=== PATIENT | female | born 2000 | race Caucasian/White ===

== ENCOUNTER 2020-09-11 22:57 | Emergency (ER) | payer OTHER, SELFPAY ==
[2020-09-11 23:51] VITALS: BP 123/78; PULSE 95; RESP 18; TEMP 36.9; O2SAT 97; BMI 68.3
--- NOTE | 2020-09-12 01:33 | ECG_ITS ---
Test Reason : SYNCOPE Blood Pressure : / mmHG Vent. Rate : 082 BPM Atrial Rate : 082 BPM P-R Int : 128 ms QRS Dur : 082 ms QT Int : 358 ms P-R-T Axes : 007 008 010 degrees QTc Int : 418 ms Normal sinus rhythm Normal ECG No previous ECGs available Referred By: Karli Diego Electronically Signed By:Chris Garcia
[2020-09-12 01:56] VITALS: BP 127/67; BP 168/98; PULSE 105; PULSE 86
[2020-09-12 01:57] VITALS: BP 150/95; PULSE 111
[2020-09-12 01:58] VITALS: BP 171/91; PULSE 112; RESP 20; O2SAT 97
[2020-09-12 02:04] LABS: MANUAL DIFF FLAG NO
[2020-09-12 02:05] LABS: Basophils Absolute Auto 0.1 X10*3/uL (0.0-0.2); Basophils Percent Auto 0.5 % (0-2); Eosinophils Absolute Auto 0.2 X10*3/uL (0.0-0.4); Eosinophils Percent Auto 1.2 % (0-4); Hematocrit 40.7 % (37-47); Hemoglobin 13.7 g/dl (12.0-16.0); Imm Gran Abs Auto 0.07 X10*3/uL (0.00-0.03); Imm Gran Pct Auto 0.4 % (0.0-0.4); Lymphocytes Absolute Auto 2.7 X10*3/uL (1.2-4.9); Lymphocytes Percent Auto 16.8 % (20-40); Mean Corpuscular HGB Conc 33.7 g/dl (31.0-35.0); Mean Corpuscular Hemoglobin 29.8 pg (27.0-33.0); Mean Corpuscular Volume 88.5 fL (80-98); Mean Platelet Volume 9.6 fL (9.4-12.3); Monocytes Absolute Auto 1.1 X10*3/uL (0.1-1.2); Monocytes Percent Auto 6.7 % (2-11); Neutrophils Absolute Auto 12.1 X10*3/uL (2.0-8.3); Neutrophils Percent Auto 74.4 % (45-73); Platelet Count 342 X10*3/uL (160-400); Red Cell Distribution Width 13.2 % (11.0-16.0); White Blood Count 16.2 X10*3/uL (4.8-10.8)
[2020-09-12 02:18] LABS: Amphetamine Screen Urine Not Detected (Not Detect); Barbiturates, Urine Not Detected (Not Detect); Benzodiazepines Screen Urine Not Detected (Not Detect); Cannabinoid Screen Urine Not Detected (Not Detect); Cocaine Screen Urine Not Detected (Not Detect); Opiate Screen Urine Not Detected (Not Detect); Phencyclidine Screen Urine Not Detected (Not Detect)
[2020-09-12 02:23] LABS: Glucose Urine UA NEG (NEG); Leukocyte Esterase Urine NEG (NEG); Nitrite Urine NEG (NEG); Specific Gravity - Urine >= 1.030 (1.005-1.025); Urine Blood 2+ (NEG); Urine Ketones NEG (NEG); Urine Protein TRACE MG/DL (NEG-TRACE)
[2020-09-12 02:23] LABS: UPreg QC Valid YES; Urine Pregnancy NEGATIVE (NEGATIVE)
[2020-09-12 02:24] LABS: Appearance Urine HAZY; Color Urine YELLOW
[2020-09-12 02:41] LABS: Alanine Aminotransferase 29 U/L (0-31); Alkaline Phosphatase 70 U/L (39-117); Aspartate Amino Transferase 20 U/L (5-31); Bilirubin Total 0.4 mg/dL (0.0-1.0); Blood Urea Nitrogen 14 mg/dL (9-16); Calcium 9.4 mg/dL (8.4-10.2); Carbon Dioxide 22 mmol/L (22-29); Creatinine Clr Calc Pharmacy 194.2; Estimated Glomerular Filt Rate > 60; Glucose Random 93 mg/dL (60-115); Total Protein 6.9 g/dL (6.5-8.0)
--- NOTE | 2020-09-12 03:01 | ED.SYNCOPE ---
HPI - Syncope General Chief Complaint: Syncope Stated Complaint: fainted 2 hours ago Time Seen by Provider: 09/12/20 01:33 Source: patient Mode of arrival: ambulatory History of Present Illness HPI narrative: This is a 19-year-old female without significant medical history who presents after reporting a syncopal episode in front of her family this evening. Patient states that she had been standing and talking to them for approximately 30 minutes and denies that it was an emotional conversation but states that she noted her vision started to narrow and she began to feel sweaty and cold, and then reports that the next thing she knew she was on the ground. She denies any recent illnesses with fevers, chills, denies any sore throat/ear pain, cough, shortness of breath, chest pain/palpitations. In addition, she denies any abdominal discomfort, nausea, vomiting, diarrhea and denies any urinary pain/burning/frequency. She states that she has been eating and drinking normally without any difficulty. Related Data Allergies Allergy/AdvReac Type Severity Reaction Status Date / Time No Known Allergies Allergy Unverified 09/11/20 23:57 Review of Systems Review of Systems: Pertinent positives and negatives as stated in HPI 10 point review of systems is otherwise negative. PMFSH Past Medical History Source: nursing notes reviewed Social History Social History Alcohol intake: never Patient Tobacco Use Status: Never used Tobacco Use of substances other than those prescribed or required for medical reasons: No Advance Directives: No Advance Directives Information Provided: No Patient : No Physical Exam Vital Signs: Vital Signs: Last Vital Signs Temp 98.4 F 09/11/20 23:51 Pulse 112 H 09/12/20 01:58 Resp 20 09/12/20 01:58 BP 171/91 H 09/12/20 01:58 Pulse Ox 97 09/12/20 01:58 Body Mass Index 68.3 VITAL SIGNS: Reviewed. GENERAL: Well developed, well nourished, in no acute distress. HEAD: Normocephalic/atraumatic EYES: PERRLA, EOMI EARS: Ext canals without abnormality, TMs non-bulging and non-erythematous NOSE: Nares patent bilateral OROPHARYNX: no oral lesions noted, posterior pharynx clear and non-erythematous without noted tonsillar enlargement/erythema/exudates NECK: Supple, no adenopathy LUNGS: Normal breath sounds. No adventitious sounds or accessory muscle use. SpO2<97> CARDIOVASCULAR: Regular rate and rhythm without noted murmurs ABDOMEN: Obese, Soft, non-tender, non-distended with bowel sounds. MUSCULOSKELETAL: No tenderness, deformities, or effusions noted on gross inspection. EXTREMITIES: No cyanosis, clubbing or edema. SKIN: Inspection of the skin reveals no rashes NEUROLOGIC: Alert and oriented x 4. Course Course Course Narrative: This is a 19-year-old female with history and clinical presentation consistent with vasovagal syncope. Review of all investigations negative for any acute findings except a leukocytosis that with no supporting history or clinical findings is being attributed to reactive secondary to patient's vasovagal episode. There is no evidence of infection otherwise, anemia, or arrhythmia. MDM - Syncope Lab Data Result diagrams: 09/12/20 01:54 09/12/20 01:54 Labs: Lab Results 09/12/20 09/12/20 09/12/20 Range/Units 01:48 01:48 01:49 WBC (4.8-10.8) X10*3/uL RBC (4.20-5.50) X10*6/uL Hgb (12.0-16.0) g/dl Hct (37-47) % MCV (80-98) fL MCH (27.0-33.0) pg MCHC (31.0-35.0) g/dl RDW (11.0-16.0) % Plt Count (160-400) X10*3/uL MPV (9.4-12.3) fL Immature Gran % (Auto) (0.0-0.4) % Neut % (Auto) (45-73) % Lymph % (Auto) (20-40) % Harding % (Auto) (2-11) % Eos % (Auto) (0-4) % Baso % (Auto) (0-2) % Lymph # (Auto) (1.2-4.9) X10*3/uL Harding # (Auto) (0.1-1.2) X10*3/uL Eos # (Auto) (0.0-0.4) X10*3/uL Baso # (Auto) (0.0-0.2) X10*3/uL Abs Immat Gran (auto) (0.00-0.03) X10*3/uL Absolute Neuts (auto) (2.0-8.3) X10*3/uL Absolute Nucleated RBC (0.0-0.012) X10*3/uL Nucleated RBC % (auto) (0.0-0.2) /100WBC Carbon Dioxide (22-29) mmol/L BUN (9-16) mg/dL Creatinine (0.5-1.4) mg/dL Estim Creat Clear Calc Estimated GFR Random Glucose (60-115) mg/dL Calcium (8.4-10.2) mg/dL Total Bilirubin (0.0-1.0) mg/dL AST (5-31) U/L ALT (0-31) U/L Alkaline Phosphatase (39-117) U/L Total Protein (6.5-8.0) g/dL Albumin (3.5-5.0) g/dL Specimen Comment Urine Color YELLOW Urine Appearance HAZY Urine pH 6.0 (5.0-8.0) Ur Specific Bone Gap >= 1.030 H (1.005-1.025) Urine Protein TRACE (NEG-TRACE) MG/DL Urine Glucose (UA) NEG (NEG) MG/DL Urine Ketones NEG (NEG) MG/DL Urine Blood 2+ H (NEG) Urine Nitrite NEG (NEG) Ur Leukocyte Esterase NEG (NEG) Urine Test NEGATIVE (NEGATIVE) Urine Opiates Screen Not Detected (Not Detect) Ur Barbiturates Screen Not Detected (Not Detect) Ur Phencyclidine Scrn Not Detected (Not Detect) Ur Amphetamines Screen Not Detected (Not Detect) U Benzodiazepines Scrn Not Detected (Not Detect) Urine Cocaine Screen Not Detected (Not Detect) U Marijuana (THC) Screen Not Detected (Not Detect) 09/12/20 09/12/20 09/12/20 Range/Units 01:54 01:54 01:54 WBC 16.2 H (4.8-10.8) X10*3/uL RBC 4.60 (4.20-5.50) X10*6/uL Hgb 13.7 (12.0-16.0) g/dl Hct 40.7 (37-47) % MCV 88.5 (80-98) fL MCH 29.8 (27.0-33.0) pg MCHC 33.7 (31.0-35.0) g/dl RDW 13.2 (11.0-16.0) % Plt Count 342 (160-400) X10*3/uL MPV 9.6 (9.4-12.3) fL Immature Gran % (Auto) 0.4 (0.0-0.4) % Neut % (Auto) 74.4 H (45-73) % Lymph % (Auto) 16.8 L (20-40) % Harding % (Auto) 6.7 (2-11) % Eos % (Auto) 1.2 (0-4) % Baso % (Auto) 0.5 (0-2) % Lymph # (Auto) 2.7 (1.2-4.9) X10*3/uL Harding # (Auto) 1.1 (0.1-1.2) X10*3/uL Eos # (Auto) 0.2 (0.0-0.4) X10*3/uL Baso # (Auto) 0.1 (0.0-0.2) X10*3/uL Abs Immat Gran (auto) 0.07 H (0.00-0.03) X10*3/uL Absolute Neuts (auto) 12.1 H (2.0-8.3) X10*3/uL Absolute Nucleated RBC 0.000 (0.0-0.012) X10*3/uL Nucleated RBC % (auto) 0.0 (0.0-0.2) /100WBC Carbon Dioxide 22 (22-29) mmol/L BUN 14 (9-16) mg/dL Creatinine 0.72 (0.5-1.4) mg/dL Estim Creat Clear Calc 194.2 Estimated GFR > 60 Random Glucose 93 (60-115) mg/dL Calcium 9.4 (8.4-10.2) mg/dL Total Bilirubin 0.4 (0.0-1.0) mg/dL AST 20 (5-31) U/L ALT 29 (0-31) U/L Alkaline Phosphatase 70 (39-117) U/L Total Protein 6.9 (6.5-8.0) g/dL Albumin 4.0 (3.5-5.0) g/dL Specimen Comment DELAY Urine Color Urine Appearance Urine pH (5.0-8.0) Ur Specific Bone Gap (1.005-1.025) Urine Protein (NEG-TRACE) MG/DL Urine Glucose (UA) (NEG) MG/DL Urine Ketones (NEG) MG/DL Urine Blood (NEG) Urine Nitrite (NEG) Ur Leukocyte Esterase (NEG) Urine Test (NEGATIVE) Urine Opiates Screen (Not Detect) Ur Barbiturates Screen (Not Detect) Ur Phencyclidine Scrn (Not Detect) Ur Amphetamines Screen (Not Detect) U Benzodiazepines Scrn (Not Detect) Urine Cocaine Screen (Not Detect) U Marijuana (THC) Screen (Not Detect) ECG Data Attestation: I personally reviewed and interpreted this ECG as follows: Prior ECG tracings: not available for review Interpretation: Normal sinus rhythm, HR -82, no evidence of acute ischemia, FL/QRS/QTC are within normal limits. Discharge Plan Discharge Clinical Impression: Vasovagal syncope Patient Disposition: Home, Self-Care Instructions: Syncope (ED) Additional Instructions: 1. Please increase your fluid hydration especially with water. 2. Please follow-up with your primary care provider in the next 2-3 days for re-evaluation. Return to the ER for any worsening of symptoms. Referrals: Araceli Lowe MD [Primary Care Provider] - 2 days
[2020-09-12 03:08] LABS: Delay - Chemistry DELAY
[2020-09-12 03:12] LABS: Bacteria Urine 1+ /LPF; Mucus Urine 1+ /LPF; RBC Urine 0-2 /HPF (0); Squamous Epithelial Cell Urine 1+ /LPF
[2020-09-12 04:11] LABS: Anion Gap 14 (12-20); Chloride 108 mmol/L (96-108); Potassium 4.2 mmol/L (3.3-5.1); Sodium 141 mmol/L (135-145)
== END 2020-09-12 03:42 | disposition home or self-care (01) ==
PROVIDERS: Emergency Provider Student in an Organized Health Care Education/Training Program; PCP Pediatrics
DX: R55 Syncope and collapse (principal)
CPT/HCPCS: 36415; 80053; 80307; 81001; 81025; 85025; 93005; 99284; 99285

== ENCOUNTER 2023-04-21 13:03 | Emergency (ER) | payer OTHER, SELFPAY ==
[2023-04-21 14:48] VITALS: BP 142/71; PULSE 70; RESP 18; TEMP 37; O2SAT 97; BMI 67.9
--- NOTE | 2023-04-21 14:48 | ED.GENADULT ---
HPI - General Adult General Chief complaint: Upper Respiratory Symptoms Stated complaint: covid symptoms Time Seen by Provider: 04/21/23 15:29 Source: patient Mode of arrival: ambulatory Limitations: no limitations History of Present Illness HPI narrative: 22-year-old female with a history of obesity presents the ER with cough and congestion for 3 days. No difficulty breathing, chest pain, fevers, chills, vomiting, diarrhea, abdominal pain, headache, skin rash, neck pain or neck stiffness. Family member is here sick with similar symptoms. Patient did a COVID test at home which was faintly positive. She wanted confirmation prompting her ER visit. Related Data Allergies Allergy/AdvReac Type Severity Reaction Status Date / Time No Known Allergies Allergy Verified 04/21/23 14:48 Review of Systems Review of Systems: Yes all other systems are reviewed and are negative Constitutional: Constitutional: Reports no additional constitutional complaints, Denies body ache(s), Denies chills, Denies fever(s), Denies headache(s) and Denies weakness Eyes: Eyes: Reports no additional eye complaints and Denies change in vision ENT: Reports system reviewed and no additional complaints, except as documented, Denies dizziness, Denies headache(s), Reports nasal congestion, Denies nasal discharge and Denies neck pain Cardiovascular: Cardiovascular: Reports no additional cardiovascular complaints, Denies chest pain, Denies leg edema and Denies dyspnea Respiratory: Respiratory: Reports no additional respiratory complaints, Reports cough and Denies dyspnea Gastrointestinal: Gastrointestinal: Reports no additional gastrointestinal complaints, Denies abdominal pain, Denies diarrhea, Denies nausea and Denies vomiting Genitourinary: Genitourinary: Reports no additional female genitourinary complaints and Denies urinary incontinence Musculoskeletal: Musculoskeletal: Reports no additional musculoskeletal complaints, Denies back pain, Denies arthralgias, Denies joint swelling, Denies neck pain, Denies numbness and Denies tingling Integumentary/Breasts: Skin/Breast: Reports system reviewed and no additional complaints, except as docu and Denies rash Neurologic: Reports system reviewed and no additional complaints, except as documented, Denies Abnormal speech present, Denies dizziness, Denies headache(s), Denies numbness, Denies tingling and Denies weakness PMF Past Medical History Attestation statement: The following information was validated with the patient. Source: old records reviewed and nursing notes reviewed Onset Date is defined in the Problem List Problems that require an onset date and time if occurred within 24 hrs of arrival to the ED Aortic Dissection and Rupture; Neurologic impairment; Cardiopulmonary Arrest; Endotracheal Intubation; Insertion or Replacement of Mechanical Circulatory Assist Device Social History Social History Alcohol intake: never Patient Tobacco Use Status: Never used Tobacco Advance Directives: No Advance Directives Information Provided: No Physical Exam ED Vital Signs: Vital Signs - 24 hr 04/21/23 14:48 Temperature 98.6 F Pulse Rate 70 Respiratory Rate 18 Blood Pressure 142/71 H Pulse Oximetry 97 Oxygen Delivery Method Room Air BMI result Body Mass Index 67.9 Const General: cooperative, healthy appearing, comfortable and no acute distress Orientation/consciousness: patient oriented x3 Limitations: no limitations HENMT Head: Yes normal to inspection Ears: hearing grossly normal bilaterally and TM's normal bilaterally General nose exam: Normal external nose present Face and sinus: Yes normal facial exam Mouth: Normal oral and palatal mucosa present Throat: Yes posterior oropharynx normal, Yes tonsils normal and Yes uvula midline Eyes General: appearance normal, both eyes and all related structures Pupils: Equal, round and reactive pupils present Neck Neck: Yes normal visual inspection, Yes full ROM, Yes no lymphadenopathy and Yes no meningeal signs Chest Chest palpation & inspection: normal inspection of the chest Resp Effort & Inspection: normal respiratory effort Auscultation: clear to auscultation bilaterally Cardio Rate: regular rate Rhythm: regular rhythm Peripheral pulses: Peripheral pulses 2+ throughout GI Inspection: Yes normal to inspection Palpation (GI): Soft to palpation and nontender Auscultation: normal bowel sounds Back/Spine/Pelvis Thoracic/Lumbar Spine: thoracic and lumbar spine normal to inspection Skin General skin exam: no rashes or lesions noted Neuro General: patient oriented x3, no meningeal signs, no focal motor deficits and normal sensation to monofilament Cranial nerves: Yes Equal, round and reactive pupils present Cognition (Neuro): normal cognition Speech: No Abnormal speech present Gait exam (Neuro): Normal gait present Motor exam (neuro): 5/5 motor strength present throughout Extrem General: Yes normal to inspection, Yes no pedal edema and Yes no calf tenderness Course Course Course Narrative: This is an RME: Additional HPI, ROS, PE not included below will be deferred to primary provider. This is a 22-year-old female presenting to the emergency department with complaints of cold like symptoms. Has not taken covid test. Woke up today with no smell or taste. +Cough, sneezing, stuffy nose. No fevers. +sick contacts. No CP Plan: COVID, Flu, strep Medical Decision Making Medical Decision Making [facility] Narrative: 22-year-old female with a history of obesity presents the ER with cough and congestion for 3 days. No difficulty breathing, chest pain, fevers, chills, vomiting, diarrhea, abdominal pain, headache, skin rash, neck pain or neck stiffness. Family member is here sick with similar symptoms. Patient did a COVID test at home which was faintly positive. She wanted confirmation prompting her ER visit. VSS. LS CTA. Exam is benign Will send viral testing Differential Diagnosis Differential Diagnoses: The differential diagnosis associated with the presentation includes viral syndrome. influenza, Admission/Observation Consideration of admission/observation: Escalation of care including admission/observation considered COVID screen is positive. No hypoxia or tachypnea suggest need for supplemental oxygen and admission. Lab Data [facility] Lab Attestation statement: I reviewed the patient's lab results. COVID + Labs: Lab Results 04/21/23 Range/Units 15:33 COVID-19 (ANN-MARIE) Positive A (Negative) COVID-19 Clin Com See Note Influenza Type A (MYA) Negative (Negative) Influenza Type B (MYA) Negative (Negative) Influenza A & B Note See Note S. pyogenes GrpA MYA Negative (Negative) Tests considered The following testing was considered but not selected: No hypoxia or tachypnea to suggest need for x-ray Prescription Management I considered prescription management with: Antiviral reviewed antiviral medication with patient potential side effects. At this time shared decision-making to hold Discharge Plan Discharge Clinical Impression: COVID-19 Patient Disposition: Home, Self-Care Instructions: COVID-19 (Coronavirus Disease 2019) (ED) Additional Instructions: alternate Motrin or Tylenol for pain or fever Increase fluids, rest Return for any shortness of breath or chest pain. Referrals: Physician,Unknown J [Primary Care Provider] - 1 week
[2023-04-21 15:59] LABS: COVID-19 Test Positive (Negative); IDNOW Serial# 08D9AD1C; IDNOW Serial# 152EDE1D; Strep A Nucleic Acid Negative (Negative)
[2023-04-21 16:01] LABS: IDNOW Serial# 9DB6401D; Influenza A Negative (Negative); Influenza B2 Negative (Negative)
== END 2023-04-21 16:30 | disposition home or self-care (01) ==
PROVIDERS: Physician Assistant Medical; Emergency Provider Emergency Medicine
DX: U07.1 COVID-19 (principal)
CPT/HCPCS: 87502; 87635; 87651; 99283

== ENCOUNTER 2024-11-12 15:43 | Emergency (ER) | payer MEDICAID, SELFPAY ==
--- NOTE | ~2024-11-12 | XR_ITS ---
EXAMINATION: XR CHEST CLINICAL INFORMATION: short of breath COMPARISON: None available. TECHNIQUE: 2 views of the chest were obtained. FINDINGS: The cardiac, hilar, and mediastinal contours are normal. The lungs are clear bilaterally. There is no pneumothorax or pleural effusion. There is no focal osseous or soft tissue abnormality. XR/XR chest 2V IMPRESSION: No active pulmonary disease. Electronically signed by: Sandeep Chavez MD 11/12/2024 04:11 PM EDT
[2024-11-12 15:54] VITALS: BP 167/76; PULSE 71; RESP 18; TEMP 36.6; O2SAT 97; BMI 66.8
--- NOTE | 2024-11-12 15:55 | ED.SOB ---
HPI - SOB/Dyspnea General Chief Complaint: Upper Respiratory Symptoms Stated Complaint: short of breath, dizzy, pain in arm Time Seen by Provider: 11/12/24 22:09 Source: patient Mode of arrival: ambulatory Limitations: no limitations History of Present Illness ED Provider: Dr. Mendy Montalvo HPI Narrative: Patient comes to the emergency room complaining of shortness of breath. Patient denies any cough, chest pain . Patient states that this time she is not short of breath. Patient states that a few days ago she fell a bit of dizziness, explained as not feeling well, denies room spinning, denies fainting episodes, denies near syncopal episodes either. Or room spinning. At this time, patient states that she feels better. Denies any sick contacts. Also, patient earlier today complaining of arm pain but now it self-resolved. Patient denies any sharp chest pains or rib pains, denies any lower extremity pain or swelling Related Data Allergies Allergy/AdvReac Type Severity Reaction Status Date / Time No Known Allergies Allergy Verified 11/12/24 15:55 Review of Systems Review of Systems: Constitutional : No Weight loss, No Fever, No Chills, No Night Sweats, No Fatigue, No Malaise ENT/Mouth : No Hearing loss, No Ear Pain, No Nasal Congestion, No Sinus Pain, No Hoarseness, No sore throat, No Rhinorrhea, No Swallowing Difficulty Eyes: No Eye Pain, No Swelling, No Redness, No Foreign Body, No Discharge, No Vision Changes Cardiovascular : No Chest Pain, No SOB, No Dyspnea on Exertion, No Orthopnea, No Edema, No Palpitations Respiratory : No Cough, No Sputum, No Wheezing, No Smoke Exposure, complaining of self-resolved Dyspnea Gastrointestinal : No Nausea, No Vomiting, No Diarrhea, No Constipation, No abdominal Pain, No Hematochezia, No Melena Genitourinary : no irregular bleeding, No Dysuria, No Urinary Frequency, No Hematuria, No Urinary Incontinence, No Urgency, No Flank Pain, No Urinary Flow Changes, No Hesitancy Musculoskeletal : No joint pain, No Myalgias, No Joint Swelling Skin : No Skin Lesions, No rash Neuro : No Weakness, No Numbness, No Paresthesias, No Loss of Consciousness, No Dizziness, No Headache Psych : No Anxiety/Panic, No Depression, No SI/HI/AH/VH, No Social Issues, Heme/Lymph: No Bruising, No Bleeding,No Lymphadenopathy Endocrine : No Polyuria, No Polydipsia, No Temperature Intolerance [facility] Social History Social History Alcohol intake: never Patient Tobacco Use Status: Never used Tobacco Smoked in Last 30 Days: No Use of substances other than those prescribed or required for medical reasons: No Advance Directives: No Advance Directives Information Provided: No Physical Exam Exam: Exam: Appearance: Alert. Oriented X3. No acute distress. Patient is morbidly obese Eyes: Pupils equal, round and reactive to light. ENT: Pharynx normal. Neck: Normal inspection. Neck supple. No lymph nodes noted. No crepitus CVS: Normal heart rate and rhythm. Pulses normal. Normal S1 and S2 Respiratory: No respiratory distress. Breath sounds normal. No Wheezing. No rales Abdomen: Soft and nontender. No rigidity. No distention. Skin: Skin warm and dry. Normal skin color. Normal skin turgor. Extremities: No lower extremity edema. No Lacerations. No Rash Neuro: Oriented X 3. No motor deficit. No sensory deficit. Moving all extremities. No slurred speech. CN 2 through 12 grossly intact Psych: calm, cooperative, normal affect Vital Signs: Vital Signs: Last Vital Signs Temp 99.4 F 11/12/24 22:00 Pulse 59 11/12/24 22:00 Resp 18 11/12/24 22:00 BP 149/72 H 11/12/24 22:00 Pulse Ox 96 11/12/24 22:00 O2 Del Method Room Air 11/12/24 22:00 BMI result Body Mass Index 66.8 Course Course Course Narrative: This is a Rapid Medical Examination (RME) performed by Sandra Butts PA-C in triage. Full HPI, ROS, assessment and treatment plan per primary provider in the Main ED. Hx: 23 yo F here for eval of shortness of breath x days, worsening. PE/vitals: well appearing, lungs clear, no respiratory distress Plan: labs, cxr, viral swabs Medical Decision Making Medical Decision Making [facility] Narrative: My interpretation of labs: Patient's white blood cell count is normal, same a stress of hematology, chemistry does not show any acute abnormalities, normal LFTs, negative serology, chest x-ray negative. Physical exam reassuring, no wheezing, no rales or crackles, oxygen saturation 98%. Discussed with the patient that eventually she may need to follow-up with the primary care physician. Patient at risk of hypoventilation syndrome due to body habitus Pulse criteria score for pulmonary embolism is 0 Differential Diagnosis Differential Diagnoses: The differential diagnosis associated with the presentation includes (Hypoventilation syndrome, deconditioning, viral URI) Lab Data MDM Lab Attestation statement: I reviewed the patient's lab results. 11/12/24 16:19 11/12/24 16:19 Labs: Lab Results 11/12/24 Range/Units 16:19 WBC 7.0 (4.8-10.8) X10*3/uL RBC 4.55 (4.20-5.50) X10*6/uL Hgb 13.1 (12.0-16.0) g/dl Hct 38.8 (37.0-47.0) % MCV 85.3 (80.0-98.0) fL MCH 28.8 (27.0-33.0) pg MCHC 33.8 (31.0-35.0) g/dl RDW 13.2 (11.0-16.0) % Plt Count 266 (160-400) X10*3/uL MPV 9.9 (9.4-12.3) fL Immature Gran % (Auto) 0.4 (0.0-0.4) % Neut % (Auto) 79.3 H (45-73) % Lymph % (Auto) 14.5 L (20-40) % [place] % (Auto) 4.2 (2-11) % Eos % (Auto) 0.9 (0-4) % Baso % (Auto) 0.7 (0-2) % Lymph # (Auto) 1.0 L (1.2-4.9) X10*3/uL [place] # (Auto) 0.3 (0.1-1.2) X10*3/uL Eos # (Auto) 0.1 (0.0-0.4) X10*3/uL Baso # (Auto) 0.1 (0.0-0.2) X10*3/uL Abs Immat Gran (auto) 0.03 (0.00-0.03) X10*3/uL Absolute Neuts (auto) 5.5 (2.0-8.3) x10*3/uL Absolute Nucleated RBC 0.000 (0.0-0.012) X10*3/uL Nucleated RBC % (auto) 0.0 (0.0-0.2) /100WBC Sodium 144 (135-145) mmol/L Potassium 3.7 (3.3-5.1) mmol/L Chloride 110 H (96-108) mmol/L Carbon Dioxide 27 (22-29) mmol/L Anion Gap 11 L (12-20) BUN 10 (9-16) mg/dL Creatinine 0.80 (0.5-1.4) mg/dL Estim Creat Clear Calc 172.4 Estimated GFR > 60 Random Glucose 89 (60-115) mg/dL Calcium 9.2 (8.4-10.2) mg/dL Magnesium 1.9 (1.6-2.6) mg/dL Total Bilirubin 0.5 (0.0-1.0) mg/dL AST 32 H (5-31) U/L ALT 28 (0-31) U/L Alkaline Phosphatase 73 (39-117) U/L Total Protein 7.4 (6.5-8.0) g/dL Albumin 4.2 (3.5-5.0) g/dL Influenza Type A (PCR) NEGATIVE (Negative) Influenza Type B (PCR) NEGATIVE (Negative) RSV RNA Qual (PCR) NEGATIVE (Negative) SARS-CoV-2 RNA (RT-PCR) NEGATIVE (Negative) Independent Interpretation I performed an independent interpretation of an: Plain X-Ray Radiology Impression Discussion of test interpretation with radiology: I have reviewed the radiologist's reading. Radiologist Impression: The cardiac, hilar, and mediastinal contours are normal. The lungs are clear bilaterally. There is no pneumothorax or pleural effusion. There is no focal osseous or soft tissue abnormality. XR/XR chest 2V IMPRESSION: No active pulmonary disease. Discharge Plan Discharge Clinical Impression: Dyspnea Patient Disposition: Home, Self-Care Instructions: Dyspnea (ED) Print Language: Lao
[2024-11-12 16:28] LABS: MANUAL DIFF FLAG NO
[2024-11-12 16:30] LABS: Hematocrit 38.8 % (37.0-47.0); Hemoglobin 13.1 g/dl (12.0-16.0); Imm Gran Abs Auto 0.03 X10*3/uL (0.00-0.03); Imm Gran Pct Auto 0.4 % (0.0-0.4); Lymphocytes Absolute Auto 1.0 X10*3/uL (1.2-4.9); Mean Corpuscular HGB Conc 33.8 g/dl (31.0-35.0); Mean Corpuscular Hemoglobin 28.8 pg (27.0-33.0); Mean Corpuscular Volume 85.3 fL (80.0-98.0); NRBC Abs Auto 0.000 X10*3/uL (0.0-0.012); NRBC Pct Auto 0.0 /100WBC (0.0-0.2); Platelet Count 266 X10*3/uL (160-400); Red Blood Count 4.55 X10*6/uL (4.20-5.50); White Blood Count 7.0 X10*3/uL (4.8-10.8)
[2024-11-12 16:42] LABS: Alanine Aminotransferase 28 U/L (0-31); Albumin Level 4.2 g/dL (3.5-5.0); Alkaline Phosphatase 73 U/L (39-117); Anion Gap 11 (12-20); Aspartate Amino Transferase 32 U/L (5-31); Blood Urea Nitrogen 10 mg/dL (9-16); Calcium 9.2 mg/dL (8.4-10.2); Carbon Dioxide 27 mmol/L (22-29); Chloride 110 mmol/L (96-108); Creatinine Clr Calc Pharmacy 172.4; Estimated Glomerular Filt Rate > 60; Magnesium 1.9 mg/dL (1.6-2.6); Potassium 3.7 mmol/L (3.3-5.1); Sodium 144 mmol/L (135-145); Total Protein 7.4 g/dL (6.5-8.0)
[2024-11-12 17:05] LABS: Resp Syncy Virus RNA Qual PCR NEGATIVE (Negative); SARS COV2 PCR INHOUSE NEGATIVE (Negative)
[2024-11-12 22:00] VITALS: BP 149/72; PULSE 59; PULSE 66; RESP 18; TEMP 37.4; O2SAT 96
--- NOTE | 2024-11-12 22:10 | PC.NURSE ---
this RN assumed care at this time, pt A+Ox3, lungs clear upon auscultation SPO2 97% on RA , pt changed over into hospital gown and placed on campus monitor. Lab work obtained in triage
[2024-11-12 22:40] VITALS: BP 149/72; PULSE 59; RESP 18; TEMP 37.4; O2SAT 96
== END 2024-11-12 22:43 | disposition home or self-care (01) ==
PROVIDERS: Physician Assistant Medical; Emergency Provider Emergency Medicine
DX: R06.02 Shortness of breath (principal); R42 Dizziness and giddiness; Z03.818 Encounter for observation for suspected exposure to other biological agents ruled out
CPT/HCPCS: 36415; 71046; 80053; 83735; 85025; 87637; 99283; 99285

== ENCOUNTER → 2024-11-12 15:55 | Outpatient (BNV) | payer OTHER, SELFPAY | PROVIDERS: Visit Provider Radiology Diagnostic Radiology | DX: R06.02 Shortness of breath (principal) | CPT/HCPCS: 71046 ==

== ENCOUNTER 2024-12-25 12:25 | Emergency (ER) | payer MEDICAID, SELFPAY ==
--- NOTE | ~2024-12-25 | CT_ITS ---
CLINICAL HISTORY: epigastric pain CT abdomen and pelvis with contrast Comparison: None provided Findings: No consolidation or effusion. The liver is hypodense. Remaining abdominal organs are unremarkable. The gallbladder is not visualized. There is no biliary dilatation. No colitis or bowel obstruction. No obvious abnormality of the stomach. Pelvic contents unremarkable. Normal appendix. No acute fracture. IMPRESSION: 1. No acute abdominal disease. 2. Fatty infiltration of the liver. This document has been electronically signed by: Meme Mott MD on 12/25/2024 19:27:16
--- NOTE | ~2024-12-25 | CT_ITS ---
CLINICAL HISTORY: elevated dimer, SOB CT angiography chest with contrast. 3D Postprocessing. Comparison: None provided Findings: The heart size is normal. RV/LV ratio is normal. Unremarkable thoracic aorta and great vessels. No aneurysm. No acute pulmonary embolus. The visualized thyroid and mediastinum are unremarkable. The lungs are clear. Liver parenchyma is hypodense. The bones are intact. IMPRESSION: 1. No evidence of pulmonary artery embolism. 2. Hypodense liver parenchyma suggesting fatty infiltration. This document has been electronically signed by: Meme Mott MD on 12/25/2024 19:17:16
--- NOTE | 2024-12-25 12:28 | ED.ABDPAIN ---
HPI - Abdominal Pain General Chief Complaint: Abdominal Pain Stated Complaint: abd pain Time Seen by Provider: 12/25/24 14:36 Source: patient and family (Mother at bedside) Mode of arrival: ambulatory Limitations: no limitations History of Present Illness ED Provider: LEROY Vang HPI narrative: 24-year-old female without significant medical history presents to the ED for 4 days of worsening epigastric pain. Patient states she woke up 4 days ago out of her sleep due to pain. Patient reports the pain is a burning and stabbing sensation in the epigastric region that radiates to the chest that is not associated with nausea or vomiting and is worse after eating. Patient states her bowel movements have been soft during this time moving her bowels 2-3 times per day. Patient reports waking up with decreased appetite and worsening epigastric pain this morning prompting her to seek care in the ED. Mother states she gave the patient omeprazole this morning which did decrease severity of the abdominal pain. Additionally, she reports intermittent SOB that can occur during activity and at rest but does not have SOB at this exact time. She reports she was seen in the department 7 weeks ago for SOB and was told it was due to viral illness. She does not have a PCP to follow up with at this time. Related Data Allergies Allergy/AdvReac Type Severity Reaction Status Date / Time No Known Allergies Allergy Verified 12/25/24 12:30 Review of Systems Review of Systems CONST: Negative for fever, body aches and chills. HENT: Negative for neck pain/stiffness, headache, congestion, sore throat, swelling. EYES: Negative for discharge/pain or vision changes. RESP: Negative for cough/hemoptysis and shortness of breath. CV: Negative chest pain, difficulty breathing, palpitations. ABD: Negative nausea, vomiting. POS epigastric pain radiating into chest : Negative increase frequency, dysuria, blood in urine or stool. MUSC: Negative for muscle aches, edema. SKIN: Negative rash, lesions/sores. NEURO: Negative headache, dizziness, weakness. [facility] Past Medical History Attestation statement: The following information was validated with the patient. Source: old records reviewed and nursing notes reviewed Social History Social History Alcohol intake: never Patient Tobacco Use Status: Never used Tobacco Smoked in Last 30 Days: No Use of substances other than those prescribed or required for medical reasons: No Advance Directives: No Advance Directives Information Provided: Yes Patient : No Physical Exam ED Vital Signs: Vital Signs - 24 hr 12/25/24 12:29 12/25/24 16:10 12/25/24 18:32 Temperature 98.3 F 98.1 F Pulse Rate 72 80 76 Respiratory Rate 18 18 16 Blood Pressure 176/82 H 141/82 H 138/77 Pulse Oximetry 97 95 98 Oxygen Delivery Method Room Air Room Air Room Air BMI result Body Mass Index 65.6 GENERAL APPEARANCE: ?AxOx4, generally well-appearing, no acute distress. HEENT: ?NC, AT. MMM. EOMI, clear conjunctiva, oropharynx clear. NECK: ?Supple without lymphadenopathy.? No stiffness or restricted ROM. HEART:? Normal rate and regular rhythm, normal S1/S2, no m/r/g LUNGS:? CTAB, moving air well. No crackles or wheezes are heard. ABDOMEN: ?Soft, non distended, no rigidity, no guarding, TTP of epigastric region, no overlying skin changes BACK: No CVAT, no obvious deformity. EXTREMITIES: ?Without cyanosis, clubbing or edema. NEUROLOGICAL: ?Grossly nonfocal. Alert and oriented, moving all 4 extremities. Skin: ?Warm and dry without any rash. Course Course Course Narrative: This is an RME: Additional HPI, ROS, PE not included below will be deferred to primary provider. RME assessment and note performed by: Nell Cristobal PA-C This is a [id number]-erv-female who presents to the ER with a complaint of epigastric pain x 4 days. Pain has worsened since. Sharp pain, worsens with laying down. No fevers. +nausea, vomiting. LMP 1 month ago - denies risk of . Abd is soft with TTP in the epigastric area, mild TTP overlying the RUQ pain Plan: Labs Reevaluation(s) Reevaluation #1: Helga Moore PA-C have accepted care of the patient at signed out pending imaging and final disposition CT abdomen and pelvis: IMPRESSION: 1. No acute abdominal disease. 2. Fatty infiltration of the liver. CTA chest:IMPRESSION: 1. No evidence of pulmonary artery embolism. 2. Hypodense liver parenchyma suggesting fatty infiltration. Medical Decision Making Medical Decision Making [facility] Narrative: 24-year-old female without significant medical history presents to the ED for 4 days of progressively worsening burning/stabbing epigastric pain that is worse after eating. Intermittent SOB over the last month that occurs while at rest and during activity. Was seen in the department approx 7 weeks ago for SOB and diagnosed with a viral illness. Plan: labs, EKG Patient being medicated with 15ml Maalox and 15ml viscous lidocaine for epigastric pain. Course EKG reveals normal sinus rhythm without ST-elevation/depression, T-wave abnormality, the arrhythmia, lengthened QT, initial troponin undetectable at <2.7, patient without chest pain. Labs without leukocytosis/leukopenia, H&H stable, no electrolyte abnormality, lipase WNL, direct bilirubin WNL, beta HCG negative. Dimer was elevated at 252. Will obtain CTA chest and CT abdomen for further evaluation. Patient was signed out to my colleague LEROY Moore who will resume care of the patient. Patient is aware of this change and is in agreement with the plan Differential Diagnosis Differential Diagnoses: The differential diagnosis associated with the presentation includes PE Pancreatitis Acute abdomen GERD Admission/Observation Consideration of admission/observation: Escalation of care including admission/observation considered Lab Data [facility] Lab Attestation statement: I reviewed the patient's lab results. 12/25/24 13:00 12/25/24 13:00 Labs: Lab Results 12/25/24 12/25/24 Range/Units 13:00 16:06 WBC 8.7 (4.8-10.8) X10*3/uL RBC 4.47 (4.20-5.50) X10*6/uL Hgb 13.2 (12.0-16.0) g/dl Hct 39.2 (37.0-47.0) % MCV 87.7 (80.0-98.0) fL MCH 29.5 (27.0-33.0) pg MCHC 33.7 (31.0-35.0) g/dl RDW 13.5 (11.0-16.0) % Plt Count 264 (160-400) X10*3/uL MPV 9.6 (9.4-12.3) fL Immature Gran % (Auto) 0.5 H (0.0-0.4) % Neut % (Auto) 75.5 H (45-73) % Lymph % (Auto) 18.9 L (20-40) % [place] % (Auto) 3.6 (2-11) % Eos % (Auto) 0.9 (0-4) % Baso % (Auto) 0.6 (0-2) % Lymph # (Auto) 1.7 (1.2-4.9) X10*3/uL Real # (Auto) 0.3 (0.1-1.2) X10*3/uL Eos # (Auto) 0.1 (0.0-0.4) X10*3/uL Baso # (Auto) 0.1 (0.0-0.2) X10*3/uL Abs Immat Gran (auto) 0.04 H (0.00-0.03) X10*3/uL Absolute Neuts (auto) 6.6 (2.0-8.3) x10*3/uL Absolute Nucleated RBC 0.000 (0.0-0.012) X10*3/uL Nucleated RBC % (auto) 0.0 (0.0-0.2) /100WBC D-Dimer High Sensitivty 252 NG/ML Sodium 142 (135-145) mmol/L Potassium 4.0 (3.3-5.1) mmol/L Chloride 110 H (96-108) mmol/L Carbon Dioxide 29 (22-29) mmol/L Anion Gap 7 L (12-20) BUN 10 (9-16) mg/dL Creatinine 0.67 (0.5-1.4) mg/dL Estim Creat Clear Calc 208.8 Estimated GFR > 60 Random Glucose 118 H (60-115) mg/dL Calcium 8.9 (8.4-10.2) mg/dL Magnesium 1.9 (1.6-2.6) mg/dL Total Bilirubin 0.4 (0.0-1.0) mg/dL Direct Bilirubin 0.2 (0.0-0.5) mg/dL AST 28 (5-31) U/L ALT 30 (0-31) U/L Alkaline Phosphatase 77 (39-117) U/L Troponin I High Sens < 2.7 (<3.5-17.0) ng/L Total Protein 7.2 (6.5-8.0) g/dL Albumin 4.1 (3.5-5.0) g/dL Lipase 20 (8-78) U/L Beta HCG, Quant < 2 mIU/mL Independent Interpretation I performed an independent interpretation of an: EKG Interpretation: I independently interpreted the EKG which reveals normal sinus rhythm without ST-elevation/depression, T-wave abnormality, prolonged QT Vent. Rate : 63 BPM Atrial Rate : 63 BPM P-R Int : 118 ms QRS Dur : 88 ms QT Int : 396 ms P-R-T Axes : -10 8 4 degrees QTcB Int : 405 ms Normal sinus rhythm Normal ECG When compared with ECG of 12-Sep-2020 00:52, No significant change was found Radiology Impression Discussion of test interpretation with radiology: I have reviewed the radiologist's reading. Radiologist Impression: CTA chest PE protocol CT abdomen and pelvis Independent Historian Clinical information obtained from an independent historian. History obtained from or confirmed by: Parent (Mother at bedside corroborating history) External Record Review External record reviewed: Inpatient record, Office record and Outpatient record Chronic Conditions Patient?s care impacted by: Other (Obesity) Medications Administered Discontinued Medications Generic Name Dose Route Start Last Admin Trade Name Freq PRN Reason Stop Dose Admin Al Hydroxide/Mg Hydroxide 15 ml 12/25/24 15:43 12/25/24 16:08 Magnesium Hydrox/Alum Hydrox 30 Ml Oral.Susp PO 12/25/24 15:44 15 ml ONCE ONE Administration Iohexol 100 ml 12/25/24 17:48 12/25/24 17:49 Iohexol 350 Mg/Ml 100 Ml Infus..Btl IV 12/25/24 17:49 100 ml ONCE ONE Administration Lidocaine HCl 15 ml 12/25/24 15:43 12/25/24 16:08 Lidocaine Hcl Viscous 2 % 15 Ml Solution MUCOUS MEM 12/25/24 15:44 15 ml ONCE ONE Administration Discharge Plan Discharge Clinical Impression: Abdominal pain, Shortness of breath Patient Disposition: Home, Self-Care Instructions: Abdominal Pain (ED), Shortness of Breath (ED) Additional Instructions: All of your screening labs were completely normal including a cardiac enzyme. CT scan of your chest, abdomen and pelvis, were also unremarkable, you have no acute findings. Follow up with your primary care provider. Print Language: Icelandic
[2024-12-25 12:29] VITALS: BP 176/82; PULSE 72; RESP 18; TEMP 36.8; O2SAT 97; BMI 65.6
[2024-12-25 13:04] LABS: MANUAL DIFF FLAG NO
[2024-12-25 13:11] LABS: Hematocrit 39.2 % (37.0-47.0); Hemoglobin 13.2 g/dl (12.0-16.0); Imm Gran Abs Auto 0.04 X10*3/uL (0.00-0.03); Imm Gran Pct Auto 0.5 % (0.0-0.4); Lymphocytes Absolute Auto 1.7 X10*3/uL (1.2-4.9); Mean Corpuscular HGB Conc 33.7 g/dl (31.0-35.0); Mean Corpuscular Hemoglobin 29.5 pg (27.0-33.0); Mean Corpuscular Volume 87.7 fL (80.0-98.0); NRBC Abs Auto 0.000 X10*3/uL (0.0-0.012); NRBC Pct Auto 0.0 /100WBC (0.0-0.2); Platelet Count 264 X10*3/uL (160-400); Red Blood Count 4.47 X10*6/uL (4.20-5.50); White Blood Count 8.7 X10*3/uL (4.8-10.8)
[2024-12-25 13:26] LABS: Alanine Aminotransferase 30 U/L (0-31); Albumin Level 4.1 g/dL (3.5-5.0); Alkaline Phosphatase 77 U/L (39-117); Anion Gap 7 (12-20); Aspartate Amino Transferase 28 U/L (5-31); Blood Urea Nitrogen 10 mg/dL (9-16); Calcium 8.9 mg/dL (8.4-10.2); Carbon Dioxide 29 mmol/L (22-29); Chloride 110 mmol/L (96-108); Creatinine Clr Calc Pharmacy 208.8; Estimated Glomerular Filt Rate > 60; Lipase 20 U/L (8-78); Magnesium 1.9 mg/dL (1.6-2.6); Potassium 4.0 mmol/L (3.3-5.1); Sodium 142 mmol/L (135-145); Total Protein 7.2 g/dL (6.5-8.0)
--- NOTE | 2024-12-25 15:30 | ECG_ITS ---
Test Reason : EPIGASTRIC PAIN Blood Pressure : */* mmHG Vent. Rate : 63 BPM Atrial Rate : 63 BPM P-R Int : 118 ms QRS Dur : 88 ms QT Int : 396 ms P-R-T Axes : -10 8 4 degrees QTcB Int : 405 ms Normal sinus rhythm Normal ECG When compared with ECG of 12-Sep-2020 00:52, No significant change was found Referred By: Jessy Vang Electronically Signed By: MADELEINE CORCORAN
[2024-12-25] MEDS: Magnesium Hydrox/Alum Hydrox 30 ML ORAL.SUSP 15 ML PO (16:08)
[2024-12-25] MEDS: Lidocaine HCl Viscous 2 % 15 ML SOLUTION MUCOUS MEM (16:08)
[2024-12-25 16:10] VITALS: BP 141/82; PULSE 80; RESP 18; O2SAT 95
[2024-12-25 16:21] LABS: D Dimer High Sensitivity 252 NG/ML
--- OUTSIDE RECORDS SUMMARY | 2024-12-25 16:24 | XMS_ITS | Encounter Summary ---
Author Organization [facility] Address [address] [place] [address] Phone Care Team Providers Care Financial Assistant Name Role Phone Araceli Lowe MD Primary Care Provider [phone] Encounter Details Date Type Department Care Team (Late st Contact Info) Description 01/15/2014 Documentation [facility] Family Medicine [address] [place] [address] Family Medicine, Physician [address] [place], [place] [id number] Social History Tobacco Use Types Packs/Day Years Used Date Smoking Tobacco: Never Assessed Comments Unknown Sex and Gender Information Value Date Recorded Sex Assigned at Female 02/03/2019 1:57 PM EDT Legal Sex Female 4:56 PM EDT Gender Identity non-binary 04/30/2020 11:26 AM EST Sexual Orientation Straight 04/30/2020 12 :03 PM EST documented as of this encounter Plan of Treatment Not on file documented as of this encounter Visit Diagnoses Not on filedocumented in this encounter Care Teams Financial Assistant Relationship Specialty Start Date End Date Araceli Lowe MD [address] [place] [id number] PCP - General Pediatrics 08/20/18 09/26/22 documented as of this encounter
--- OUTSIDE RECORDS SUMMARY | 2024-12-25 16:24 | XMS_ITS | Encounter Summary ---
Author Organization [facility] Address [address] [place] [address] Phone Care Team Providers Care Sawyer Cork Slabs Name Role Phone Araceli Lowe MD Primary Care Provider Encounter Details Date Type Department Care Team (Late st Contact Info) Description 01/09/2014 Documentation [facility] [place] Medicine [address] [place] [address] Family Medicine, Physician [address] [place], [place] [address] Social History Tobacco Use Types Packs/Day Years [...] on filedocumented in this encounter Care Teams Sawyer Cork Slabs Relationship Specialty Start Date End Date Araceli Lowe MD [address] [place] [id number] PCP - General Pediatrics 08/20/18 09/26/22 documented as of this encounter
--- OUTSIDE RECORDS SUMMARY | 2024-12-25 16:24 | XMS_ITS | Encounter Summary ---
Author Organization [facility] Address [address] [place] [address] Phone Care Team Providers Care Director Of Real Estate Name Role Phone Araceli Lowe MD Primary Care Provider [phone] Encounter Details Date Type Department Care Team (Late st Contact Info) Description 10/16/[address] [facility] Family Medicine [address] [place] [address] Family Medicine, Physician [address] [place], [place] [id number] Social History Tobacco Use Types Packs/Day Years [...] on filedocumented in this encounter Care Teams Director Of Real Estate Relationship Specialty Start Date End Date Araceli Lowe MD [address] [place] [phone] PCP - General Pediatrics 08/20/18 09/26/22 documented as of this encounter
--- OUTSIDE RECORDS SUMMARY | 2024-12-25 16:24 | XMS_ITS | Encounter Summary ---
Author Organization [facility] Address [address] [place] [address] Phone Care Team Providers Care Undercover Operator Name Role Phone Araceli Lowe MD Primary Care Provider [phone] Encounter Details Date Type Department Care Team (Late st Contact Info) Description 03/20/2012 Documentation [facility] [place] [address] [place] [address] Family Medicine, Physician [address] [place], [place] [address] Social History Tobacco Use Types Packs/Day Years [...] on filedocumented in this encounter Care Teams Undercover Operator Relationship Specialty Start Date End Date Araceli Lowe MD [address] [place] [address] PCP - General Pediatrics 08/20/18 09/26/22 documented as of this encounter
--- OUTSIDE RECORDS SUMMARY | 2024-12-25 16:24 | XMS_ITS | Encounter Summary ---
Author Organization [facility] Address [address] [place] [address] Phone Care Team Providers Care Color Strainer Name Role Phone Araceli Lowe MD Primary Care Provider [phone] Encounter Details Date Type Department Care Team (Late st Contact Info) Description 01/20/2010 Documentation [facility] [place] [address] [place] [address] Family Medicine, Physician [address] [place], [place] [address] Social History Tobacco Use Types Packs/Day Years [...] on filedocumented in this encounter Care Teams Color Strainer Relationship Specialty Start Date End Date Araceli Lowe MD [address] [place] [phone] PCP - General Pediatrics 08/20/18 09/26/22 documented as of this encounter
--- OUTSIDE RECORDS SUMMARY | 2024-12-25 16:24 | XMS_ITS | Encounter Summary ---
Author Organization [facility] Address [address] [place] [address] Phone Care Team Providers Care Manager Social Responsibility Name Role Phone Araceli Lowe MD Primary Care Provider [phone] Encounter Details Date Type Department Care Team (Late st Contact Info) Description 03/11/2014 Documentation [facility] Family Medicine [address] [place] [address] Family Medicine, Physician [address] [place], [place] [id number] Social History Tobacco Use Types Packs/Day Years [...] on filedocumented in this encounter Care Teams Manager Social Responsibility Relationship Specialty Start Date End Date Araceli Lowe MD [address] [place] [address] PCP - General Pediatrics 08/20/18 09/26/22 documented as of this encounter
--- OUTSIDE RECORDS SUMMARY | 2024-12-25 16:24 | XMS_ITS | Encounter Summary ---
Author Organization [facility] Address [address] [place] [address] Phone Care Team Providers Care Concrete Finisher Name Role Phone Araceli Lowe MD Primary Care Provider [phone] Encounter Details Date Type Department Care Team (Late st Contact Info) Description 03/16/2014 [place]ation [facility] [place] [address] [place] [address] Family Medicine, Physician [address] [place], [place] 381541 Social History Tobacco Use Types Packs/Day Years [...] on filedocumented in this encounter Care Teams Concrete Finisher Relationship Specialty Start Date End Date Araceli Lowe MD [address] [place] [address] PCP - General Pediatrics 08/20/18 09/26/22 documented as of this encounter
--- OUTSIDE RECORDS SUMMARY | 2024-12-25 16:24 | XMS_ITS | Encounter Summary ---
Author Organization [facility] Address [address] [place] [address] Phone Care Team Providers Care Caser Shoe Parts Name Role Phone Araceli Lowe MD Primary Care Provider [phone] Encounter Details Date Type Department Care Team (Late st Contact Info) Description 11/23/2016 Conversion Encounter [facility] [place] [address] [place] [address] Social History Tobacco Use Types Packs/Day Years Used Date Smoking Tobacco: Never Comments:Never smoker Comments Unknown Sex and Gender Information Value [...] on filedocumented in this encounter Care Teams Caser Shoe Parts Relationship Specialty Start Date End Date Araceli Lowe MD [address] [place] [address] PCP - General Pediatrics 08/20/18 09/26/22 documented as of this encounter
--- OUTSIDE RECORDS SUMMARY | 2024-12-25 16:24 | XMS_ITS | Encounter Summary ---
Author Organization [facility] Address [address] [place] [address] Phone Care Team Providers Care Fuel Efficient Aircraft Designer Name Role Phone Araceli Lowe MD Primary Care Provider [phone] Encounter Details Date Type Department Care Team (Late st Contact Info) Description 01/13/2014 Documentation [facility] [place] Family Medicine [address] [place] [address] Family Medicine, Physician [address] [place], [place] 316271 Social History Tobacco Use Types Packs/Day Years [...] on filedocumented in this encounter Care Teams Fuel Efficient Aircraft Designer Relationship Specialty Start Date End Date Araceli Lowe MD [address] [place] [address] PCP - General Pediatrics 08/20/18 09/26/22 documented as of this encounter
--- OUTSIDE RECORDS SUMMARY | 2024-12-25 16:24 | XMS_ITS | Encounter Summary ---
Author Organization [facility] Address [address] [place] [address] Phone Care Team Providers Care Tractor Trailer Truck Driver Name Role Phone Araceli Lowe MD Primary Care Provider [phone] Encounter Details Date Type Department Care Team (Late st Contact Info) Description 06/26/2013 [place] [facility] [place] [address] [place] [address] Family Medicine, Physician [address] [place], [place] 102771 Social History Tobacco Use Types Packs/Day Years [...] on filedocumented in this encounter Care Teams Tractor Trailer Truck Driver Relationship Specialty Start Date End Date Araceli Lowe MD [address] [place] [address] PCP - General Pediatrics 08/20/18 09/26/22 documented as of this encounter
--- OUTSIDE RECORDS SUMMARY | 2024-12-25 16:24 | XMS_ITS | Encounter Summary ---
Author Organization [facility] Address [address] [place] [address] Phone Care Team Providers Care Dairy Technician Name Role Phone Araceli Lowe MD Primary Care Provider [phone] Encounter Details Date Type Department Care Team (Late st Contact Info) Description 01/16/2014 Documentation [facility] [place] [address] [place] [address] Family Medicine, Physician [address] [place], [place] 926951 Social History Tobacco Use Types Packs/Day Years [...] on filedocumented in this encounter Care Teams Dairy Technician Relationship Specialty Start Date End Date Araceli Lowe MD [address] [place] [address] PCP - General Pediatrics 08/20/18 09/26/22 documented as of this encounter
--- OUTSIDE RECORDS SUMMARY | 2024-12-25 16:24 | XMS_ITS | Encounter Summary ---
Author Organization [facility] Address [address] [place] [address] Phone Care Team Providers Care Sales Support Engineer Name Role Phone Araceli Lowe MD Primary Care Provider [phone] Encounter Details Date Type Department Care Team (Late st Contact Info) Description 09/30/2010 Documentation [facility] [place] [address] [place] [address] Family Medicine, Physician [address] [place], [place] 025741 Social History Tobacco Use Types Packs/Day Years [...] on filedocumented in this encounter Care Teams Sales Support Engineer Relationship Specialty Start Date End Date Araceli Lowe MD [address] [place] [address] PCP - General Pediatrics 08/20/18 09/26/22 documented as of this encounter
--- OUTSIDE RECORDS SUMMARY | 2024-12-25 16:24 | XMS_ITS | Encounter Summary ---
Author Organization [facility] Address [address] [place] [address] Phone Care Team Providers Care Wildlife Policy Professional Name Role Phone Araceli Lowe MD Primary Care Provider [phone] Encounter Details Date Type Department Care Team (Late st Contact Info) Description 03/18/2014 [place] [facility] [place] [address] [place] [address] Family Medicine, Physician [address] [place], [place] 562511 Social History Tobacco Use Types Packs/Day Years [...] on filedocumented in this encounter Care Teams Wildlife Policy Professional Relationship Specialty Start Date End Date Araceli Lowe MD [address] [place] [address] PCP - General Pediatrics 08/20/18 09/26/22 documented as of this encounter
--- OUTSIDE RECORDS SUMMARY | 2024-12-25 16:24 | XMS_ITS | Encounter Summary ---
Author Organization [facility] Address [address] [place] [address] Phone Care Team Providers Care Commercial Account Manager Name Role Phone Araceli Lowe MD Primary Care Provider [phone] Encounter Details Date Type Department Care Team (Late st Contact Info) Description 05/18/2010 Documentation [facility] [place] [address] [place] [address] Family Medicine, Physician [address] [place], [place] 516591 Social History Tobacco Use Types Packs/Day Years [...] on filedocumented in this encounter Care Teams Commercial Account Manager Relationship Specialty Start Date End Date Araceli Lowe MD [address] [place] [address] PCP - General Pediatrics 08/20/18 09/26/22 documented as of this encounter
--- OUTSIDE RECORDS SUMMARY | 2024-12-25 16:24 | XMS_ITS | Encounter Summary ---
Author Organization [facility] Address [address] [place] [address] Phone Care Team Providers Care Marbleizing Machine Tender Name Role Phone Araceli Lowe MD Primary Care Provider Encounter Details Date Type Department Care Team (Late st Contact Info) Description 02/03/2015 Documentation [facility] [place] Family Medicine [address] [place] [address] Family Medicine, Physician [address] [place], [place] 269481 Social History Tobacco Use Types Packs/Day Years [...] on filedocumented in this encounter Care Teams Marbleizing Machine Tender Relationship Specialty Start Date End Date Araceli Lowe MD [address] [place] [address] PCP - General Pediatrics 08/20/18 09/26/22 documented as of this encounter
--- OUTSIDE RECORDS SUMMARY | 2024-12-25 16:24 | XMS_ITS | Clinical Summary ---
Author Organization [facility] Address [address] [place] [address] Phone Care Team Providers Care Coat Ironer Hand Name Role Phone Unavailable Primary Care Provider Unavailabl e Allergies No known active allergies Medications amphetamine-dext roamphetamine XR (ADDERALL XR) 10 MG 24 hr capsule Take 20 mg by mouth. 7 Active metFORMIN 500 MG tablet Take 500 mg by mouth 2 (two) times a day with meals. Active levothyroxine 125 MCG tablet Take 125 mcg by mouth daily. Active vitamin E 400 units capsule Take 400 Units by mouth daily. Active Calcium Carb-Cholecalcif elyssa (CALCIUM-VITAMIN D) 500-200 MG-UNIT per tablet Take 1 tablet by mouth. Active amphetamine-dext roamphetamine 30 MG tablet Take 30 mg by mouth every afternoon. Active albuterol HFA (ProAir HFA) 108 (90 Base) MCG/ACT inhalerIndicatio ns:Mild intermittent asthma, unspecified whether complicated Inhale 2 puffs every 4 (four) hours as needed for wheezing or shortness of breath (cough). 1 Units 0 Active Additional Information Patient not taking.Reported on 04/30/2020 tretinoin 0.025 % creamIndications :Acne vulgaris Apply topically nightly. Leave on overnight. 45 g 3 1 Active Active Problems Problem Noted Date Diagnosed Date Myopia 08/01/2021 Overview (08/01/2021): With astigmatism. Glasses. F/u ophtho (Dr. [facility]) annually. Need for case management follow-up 04/30/2020 Overview (04/30/2020): Needs routine teen urine screen Vitamin D deficiency 02/06/2019 Overview (05/01/2020): 01/25: level = 13, instructed to start 1000IU/day, plan to re-check in 3 months, but not checked again until 04/29, when level was 13. Vitamin D 2000IU/day ordered 04/29. Acne vulgaris 02/03/2019 Overview (02/03/2019): Benzoyl peroxide and tretinoin 0.025% cream qhs Assessment & Plan (02/03/2019 1:36 PM EDT): Will start benzoyl peroxide and tretinoin 0.025% cream qhs. Dysmenorrhea 02/03/2019 Overview (02/03/2019): Doesn't want to take anything and still able to function normally. Assessment & Plan (02/03/2019 1:49 PM EDT): Discussed NSAIDs and heating pads. Morbid obesity due to excess calories 11/21/2017 Overview (04/25/2019): Has NAFLD (followed by Dr. Liao) and prediabetes, on metformin (followed by bessy franco at [facility]). Clint is discussing bariatric surgery with her. No show to [facility] weight mgmt clinic 04/23/19. Assessment & Plan (02/03/2019 1:26 PM EDT): She's gained 68lb since her PE 14 months ago. Prediabetes 11/21/2017 Overview (08/01/2021): On metformin. Followed by [facility] Bessy Franco, last 11/09/17, was to f/u 04/2706/24/21- ophtho (Dr. [facility], [facility]) - no e/o diabetic retinopathy, does have myopia and astigmatism --> glasses, f/u annually. 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 Counselor at [facility] since ~2014: Tatianna Dumont ([facility]) - 2x/week. Assessment & Plan (04/30/2020 11:36 AM EST): No concerns about mood today, continue with therapist and med prescriber. ADHD (attention deficit hyperactivity disorder) 11/09/2016 Overview (04/30/2020): Takes Adderall XR 20mg qAM, Adderall 30mg qpm. Prescriber: Kaci Lopez ([facility]). 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 Followed by [facility], last 11/09/17, levothyroxine increased to 125mg, was to f/u 04/27, but no further visits. Assessment & Plan (04/30/2020 11:23 AM EST): Flor to call endo to make much overdue appt. I will check TSH and FT4 today though. Assessment & Plan (02/03/2019 1:29 PM EDT): Has an endo appt in March. Behavior problem in child 04/22/2009 Fatty liver 04/22/2009 Overview (04/28/2020): Followed [facility], last 04/18/18, ultrasound 04/27 showed persistent fatty liver, was to f/u in 6 mos. AST/ALT nl 01/25. Assessment & Plan (02/03/2019 1:31 PM EDT): Mom says she couldn't get a f/u appt, but her AST and ALT were normal 04/27. Will check LFTs and determine if she needs to be seen again by a GI doc. If so, will consider referral to new [facility] Resolved Problems Problem Noted Date Diagnosed Date Resolved Date Complex care coordination 11/21/2017 Mild intermittent asthma without complication 04/22/19 10 02/03/2019 Overview (02/03/2019): No issue since she was about 8yo. Immunizations Immunization Administration Dates Next Due DTaP 5 01/18/2005, 3,06/18/2001,04/17,02/11/2001 H1N1 04/22/2009,03/22/2009 HPV, Quadrivalent 09/23/2013,05/15/2013,05/14/19 13 Hep A, ped/adol 10/28/2015,08/20/2014 Hep B, ped/adol 02/03/2019, 2,01/10/2001,12/15 Hib (PRP-T) 03/17/2002, 2,04/17/2001,02/11 IPV 01/18/2005, 2,04/17/2001,02/11 Influenza 11/19/2019 Influenza Split 03/11/2013, 2,01/02/2011,12/14 Influenza, injectable, MDCK, preservative free, quadrivalent 12/14/2017 Influenza, injectable, quadr ivalent, preservative free 02/08/2022,12/24/2020,11/19/2019,12/08,12/08/2018,12/14/2017,12/25/2016 ,12/28/2015,12/25/2014,12/25/2013 Influenza, injectable, trivalent 009,03/10/2008,02/05/2008,01/26,03/02/2004 MMR 01/18/2005,12/20/2001 Meningococcal B Trumenba 10/03/2019,02/03/2019 Meningococcal Conj (Menactra) MCV4P 11/21/2017,0 05/15/2013 Pneumococcal Conjugate 01/03/2003,2001,04/17/2001,02/11 Tdap 05/15/2013 Varicella 08/20/2014,12/20/2001 Family History Medical History Relation Name Comments Bipolar disorder Brother laura Anxiety disorder Father yifan Depression Father yifan Hypertension Father yifan Asthma Maternal Grandmother Diabetes Maternal Grandmother Heart disease (Premature) Maternal Grandmother Hyperlipidemia Maternal Grandmother Anxiety disorder Mother jesi Depression Mother jesi Diabetes Mother jesi Hyperlipidemia Mother jesi Liver disease Mother jesi Thyroid disease Mother jesi Obesity Mother's Sister Breast cancer Other Liver cancer Other Migraines Other Relation Name Status Comments Brother laura Alive Brother: Alive and well Father yifan Alive Father: Alive a nd well, Alive and well Maternal Grandfather Alive Maternal Grandmother Alive Materna l grandmother: Elevated cholesterol, Asthma, Diabetes mellitus Mother jesi Alive Mother: Diabete s mellitus, Hypothyroidism, Hyperlipidemia Mother's Sister Other No family histo ry of *Sudden /[place] under 55, Family history of Cancer, breast, Family history of *Heart Disease, Family history of Migraines, Family history of Obesity, No family history of Seizure disorder, No family history of *Thrombophilia, No family history of ADD/ADHD, No family history of *CVA/Stroke Sister Sister: Asthma Social History Tobacco Use Types Packs/Day Years Used Date Smoking Tobacco: Never Smokeless Tobacco: Never Comments:Never smoker Hunger/Food Answer Date Recorded In the last 12 months, did y ou or your family ever eat less than you felt you should because there wasn't enough money for food? No 02/03/2019 Stable Housing Answer Date Recorded Are you worried that in the next 2 months you may not have stable housing? No 02/03/2019 Transportation Concerns Answer Date Rec orded In the last 12 months, have you or your family ever had to go without healthcare because you didn't have a way to get there? No 02/03/2019 Hazards in Home Answer Date Recorded Think about the place you li ve. Do you have problems with any of the following? Pests (mice or roaches), mold, no/not working smoke detectors, water leaks, no window guards. No 2018 Financing Utilities Answer Date Recorde d In the last 12 months, has t he electric, gas, oil, or water company threatened to shut off your services in your home? No 02/03/2019 Safety at Home Answer Date Recorded Are you or your family worried about feeling saf e in your home? No 02/03/2019 Outside Support Answer Date Recorded Do you feel that you need mo re support from other people or programs to help you care for yourself or your family? No 02/03/2019 Understanding Health Concerns Answer Da te Recorded Do you need help understandi ng your or your child's healthcare needs (diagnosis, medications, plan, etc.)? No 02/03/2019 Financing Health Concerns Answer Date R ecorded In the last 12 months, was t here a time when your child needed to see a doctor or get medications or supplies but could not because of cost? No 02/03/2019 Missing School or Work Answer Date [place] rded Did you or your child miss s chool or work because of a health problem that could have been avoided? No 02/03/2019 Comments No Sex and Gender Information Value Date Recorded Sex Assigned at Female 02/03/2019 1:57 PM EDT Legal Sex Female 4:56 PM EDT Gender Identity non-binary 04/30/2020 11:26 AM EST Sexual Orientation Straight 04/30/2020 12 :03 PM EST Last Filed Vital Signs Vital Sign Reading Time Taken Comments Blood Pressure 124/78 04/30/2020 10:38 AM EST Pulse 76 04/30/2020 10:38 AM EST Temperature 36 C (96.8 F) 04/30/2020 10:38 AM EST Respiratory Rate - - Oxygen Saturation 97% 05/04/2010 12:00 AM EST Inhaled Oxygen Concentration - - Weight 182 kg (400 lb 9.6 oz) 04/30/2020 10:38 A M EST Height 161.5 cm (5' 3.58 ) 04/30/2020 10:[address] Body Mass Index 69.67 04/30/2020 10:38 AM EST Plan of Treatment Health Maintenance Due Date Last Done Comments DTaP,Tdap,and Td Vaccines (7 - Td or Tdap) 05/15/2023 05/15/2013, 01/18/2005, 06/24/2002, Additional history exists Influenza Vaccines (#1) 2024 02/09/20, 12/24/2020, 11/19/2019, Additional history exists COVID-19 Vaccine (2024-2 6 season) 2024 04/14/2021, 09/05/2020, 08/15/2020 HIB Vaccines Completed 03/17/2002, 06/07, 04/17/2001, Additional history exists Pneumococcal Vaccine Completed 01/03/2003, 06/18/2001, 04/17/2001, Additional history exists IPV Vaccines Completed 01/18/2005, 12/08, 04/17/2001, Additional history exists MMR Vaccines Completed 01/18/2005, 12/20/2001 HPV Vaccines Completed 09/23/2013, 09/2013, 05/14/2012 Varicella Vaccines Completed 08/20/2014, 12/20/2001 Hepatitis A Vaccines Completed 10/28/2015, 08/21/19 15 Meningococcal Vaccine Completed 11/21/2017, 014 Hepatitis B Vaccines Completed 02/03/2019, 06/18/2001, 01/10/2001, Additional history exists Men B Vaccine Completed 10/03/2019, 02/03/2019 Insurance [facility] [address] NON PCC
--- OUTSIDE RECORDS SUMMARY | 2024-12-25 16:24 | XMS_ITS | Encounter Summary ---
Author Organization [facility] Address [address] [place] [address] Phone Care Team Providers Care Package Clerk Name Role Phone Araceli Lowe MD Primary Care Provider [phone] Encounter Details Date Type Department Care Team (Late st Contact Info) Description 01/16/2014 Documentation [facility] [place] [address] [place] [address] Family Medicine, Physician [address] [place], [place] 0946[address] Social History Tobacco Use Types Packs/Day Years [...] on filedocumented in this encounter Care Teams Package Clerk Relationship Specialty Start Date End Date Araceli Lowe MD [address] [place] [address] PCP - General Pediatrics 08/20/18 09/26/22 documented as of this encounter
--- OUTSIDE RECORDS SUMMARY | 2024-12-25 16:24 | XMS_ITS | Encounter Summary ---
Author Organization [facility] Address [address] [place] [address] Phone Care Team Providers Care Nutrition Partner Name Role Phone Araceli Lowe MD Primary Care Provider [phone] Encounter Details Date Type Department Care Team (Late st Contact Info) Description 03/12/2014 Documentation [facility] [place] Family Medicine [address] [place] [address] Family Medicine, Physician [address] [place], [place] 895411 Social History Tobacco Use Types Packs/Day Years [...] on filedocumented in this encounter Care Teams Nutrition Partner Relationship Specialty Start Date End Date Araceli Lowe MD [address] [place] [address] PCP - General Pediatrics 08/20/18 09/26/22 documented as of this encounter
--- OUTSIDE RECORDS SUMMARY | 2024-12-25 16:24 | XMS_ITS | Encounter Summary ---
Author Organization [facility] Address [address] [place] [address] Phone Care Team Providers Care Crew Car Driver Name Role Phone Araceli Lowe MD Primary Care Provider [phone] Encounter Details Date Type Department Care Team (Late st Contact Info) Description 01/16/2014 Documentation [facility] [place] [address] [place] [address] Family Medicine, Physician [address] [place], [place] [address]44[address] Social History Tobacco Use Types Packs/Day Years [...] on filedocumented in this encounter Care Teams Crew Car Driver Relationship Specialty Start Date End Date Araceli Lowe MD [address] [place] [address] PCP - General Pediatrics 08/20/18 09/26/22 documented as of this encounter
[2024-12-25 16:37] LABS: Troponin-I High Sensitivity < 2.7 ng/L (<3.5-17.0)
[2024-12-25] MEDS: iohexoL 350 MG/ML 100 ML INFUS..BTL IV (17:49)
[2024-12-25 18:32] VITALS: BP 138/77; PULSE 76; RESP 16; TEMP 36.7; O2SAT 98
[2024-12-25 19:50] VITALS: BP 138/77; PULSE 76; RESP 16; TEMP 36.7; O2SAT 98
== END 2024-12-25 19:59 | disposition home or self-care (01) ==
PROVIDERS: Physician Assistant Medical; Emergency Provider Emergency Medicine
DX: R10.13 Epigastric pain (principal); R06.02 Shortness of breath; Z79.899 Other long term (current) drug therapy
CPT/HCPCS: 36415; 71275; 74177; 80048; 80076; 83690; 83735; 84484; 84702; 85025; 85379; 93005; 99284; 99285; Q9967

== ENCOUNTER → 2024-12-25 15:30 | Outpatient (BNV) | payer MEDICAID, SELFPAY | PROVIDERS: Emergency Provider Emergency Medicine; Visit Provider Internal Medicine | DX: R10.13 Epigastric pain (principal) | CPT/HCPCS: 93010 ==

== ENCOUNTER → 2024-12-25 16:47 | Outpatient (BNV) | payer MEDICAID, SELFPAY | PROVIDERS: Emergency Provider Emergency Medicine; Visit Provider Radiology Diagnostic Radiology | DX: K76.0 Fatty (change of) liver, not elsewhere classified (principal); R06.02 Shortness of breath | CPT/HCPCS: 71275; 74177 ==

== ENCOUNTER 2025-03-06 11:10 | Emergency (ER) | payer MEDICAID, SELFPAY ==
--- OUTSIDE RECORDS SUMMARY | 2023-04-12 07:22 | XMS_ITS | Continuity of Care Document ---
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 Name Role Phone Danita Zamora Unavailable Unavailable Allergies, Adverse Reactions, Alerts Substance Reaction Status Criticality CEPHALEXIN MONOHYDRATE Active No In formation Medications Medication Instructions Dosage Effective Dates (start - stop) Status Comments metronidazole 0.75 % (37.5 mg/5 gram) vaginal gel insert 1 applicatorful by vaginal route every day at bedtime 37.5 MG - Active Diflucan 150 mg tablet take 1 tablet by oral route once once, repeat in 3 days 150 MG - Active Mirena 20 mcg/24 hours (8 yrs) 52 mg intrauterine device Insertion date 02/20/22 - Active Vitamin D3 125 mcg (5,000 unit) tablet Take 1 p.o. daily. - Active Procedures Procedure Date N.GONORRHOEAE DNA DIR PROB CHYLMD TRACH DNA DIR PROBE Office/Established Level 4 SYST BP LT 130 MM HG DIAST BP < 80 MM HG MARIBEL DNA DIR PROBE GORDON VAG DNA DIR PROBE TRICHOMONAS VAGIN DIR PROBE Office/Established Level 3 SYST BP LT 130 MM HG DIAST BP < 80 MM HG MARIBEL DNA DIR PROBE GORDON VAG DNA DIR PROBE TRICHOMONAS VAGIN DIR PROBE URINE TEST LEFT WITHOUT BEING SEEN Office/Established Level 4 SYST BP LT 130 MM HG DIAST BP < 80 MM HG IUD Insertion Mirena IUD 52mg Remove Contraceptive Capsule Office/Established Level 3 SYST BP LT 130 MM HG DIAST BP 80-89 MM HG URINE TEST MARIBEL DNA DIR PROBE GORDON VAG DNA DIR PROBE TRICHOMONAS VAGIN DIR PROBE SYST BP LT 130 MM HG DIAST BP < 80 MM HG URINE TEST Office/Established Level 4 Admin. 1 Vaccine (SL/EP Mod) FLU VAC NO PRSV 4 DARRON Admin. Ea. Addt''l Vaccine (SL/EP Mod) O Tdap > 7 yrs ASSAY OF IRON IRON BINDING TEST VITAMIN B-12 ASSAY OF MAGNESIUM ASSAY OF FERRITIN VITAMIN D 25 HYDROXY GENERAL HEALTH PANEL Preventative Established 18-39 yrs Oct- Office/Established Level 4 SYST BP LT 130 MM HG DIAST BP < 80 MM HG URINALYSIS AUTO W/SCOPE ROUTINE VENIPUNCTURE Office/Established Level 4 SYST BP LT 130 MM HG DIAST BP < 80 MM HG URINE TEST ROUTINE VENIPUNCTURE ASSAY THYROID STIM HORMONE COMP CBC W/AUTO DIFF WBC URINALYSIS AUTO W/SCOPE URINE TEST Office/Established Level 4 SYST BP LT 130 MM HG DIAST BP < 80 MM HG Specimen handling fee Specimen handling fee Preventative Established 18-39 yrs SYST BP LT 130 MM HG DIAST BP < 80 MM HG COMPLETE CBC AUTOMATED ROUTINE VENIPUNCTURE ASSAY THYROID STIM HORMONE LIPID PANEL COMPREHEN METABOLIC PANEL Office/Established Level 4 MED SERV LOBO/WKEND/HOLIDAY SYST BP LT 130 MM HG DIAST BP < 80 MM HG HG A1C LEVEL LT 7.0% URINALYSIS AUTO W/SCOPE ROUTINE VENIPUNCTURE HGB QUANT TRANSCUTANEOUS Hemoglobin A1c LIPID PANEL COMPREHEN METABOLIC PANEL Audiometry-Hearing Screen Vision Screening Brief Emotional/behavioral A ssessment W/scoring And Documentation Per Stand. Ins Preventative Established 12-17 yrs SYST BP LT 130 MM HG DIAST BP < 80 MM HG HG A1C LEVEL LT 7.0% Office/Established Level 4 Audiometry-Hearing Screen Developmental Screening W/scoring And Do cumentation Per Stand. Instrument Brief Emotional/behavioral A ssessment W/scoring And Documentation Per Stand. Ins Preventative Established 12-17 yrs Nov- Hemoglobin A1c URINALYSIS AUTO W/SCOPE ROUTINE VENIPUNCTURE URINALYSIS AUTO W/O SCOPE COMP CBC W/AUTO DIFF WBC ROUTINE VENIPUNCTURE ASSAY OF FREE THYROXINE ASSAY THYROID STIM HORMONE VITAMIN D 25 HYDROXY LIPID PANEL COMPREHEN METABOLIC PANEL Admin. 1 Vaccine (SL/EP Mod) MENINGOCOCCAL RECOMBINANT OH OTEIN AND OUTER MEMBRANE VESICLE, INTRAMUSCULAR Office/Established Level 4 Office/Established Level 4 MED SERV LOBO/WKEND/HOLIDAY Office/Established Level 4 STREP A ASSAY W/OPTIC Admin. Ea. Addt'l Vaccine (SL/EP Mod) No MENINGOCOCCAL RECOMBINANT OH OTEIN AND OUTER MEMBRANE VESICLE, INTRAMUSCULAR Admin. 1 Vaccine (SL/EP Mod) Meningococcal Vaccine (IM) Office/Established Level 4 STREP A ASSAY W/OPTIC Vision Screening Brief Emotional/behavioral A ssessment W/scoring And Documentation Per Stand. Ins HGB QUANT TRANSCUTANEOUS CAPILLARY BLOOD DRAW Preventative Established 12-17 yrs Advance Directives Directive Yes / No Effective Date File Name No Information Encounters Encounter Description Practice Location Reason(s) For Visit Diagnoses Date Provider Providers Copied on Encounter [address] [place], [place], [id number], [place] tel:[phone] [facility] No Information 4 Noah Danita. [address] [facility], [place], [address], [place]. tel:[phone] [place], [id number], [place] tel:[phone] [facility] No Information 3 Jorgito Kidd. [address] [facility], [address], [place], [place], [id number], [place]. tel:[phone] Office/Establ ished Level [address] [place], [id number], [place] tel: [phone] [facility] BV (chief complaint) Acute vaginitisEnc ounter for screening for infections with a predominantl y sexual mode of transmission Encounter for screening for other infectious and parasitic diseasesBody mass index (BMI) 30.0-30.9, adult Oct-2 0-202 3 Jorgito Kidd. [address] [place] [address], [address], [place], [place], [id number], [place]. tel:[phone] Referring Provider: Marti Bull, [address] [place] [address] [address], [place], [address]. tel: [phone] Office/Establ ished Level [address] [place], [id number], [place] tel: [phone] [facility] IUD surveillance (chief complaint) IUD check upOther specified noninflammat ory disorders of vaginaBody mass index (BMI) 30.0-30.9, adult Sep-0 6- 3 King Danita. [address] [place] [address], [address], [place]. tel:[phone] Referring Provider: Danita Zamora, [address] [place] [address], [address]. tel: [phone] [address] [place], [id number], [place] tel: [phone] [facility] No Information Sep-0 3 Devendra Browne. [address] [place] [address], [id number], [place]. tel:[phone] Referring Provider: Hollie Ramsay, [address] [place] [address], [address]. tel: [phone] Office/Establ ished Level [address] [place], [id number], [place] tel: [phone] [facility] [place] IUD Check (chief complaint) IUD check upChlamydia contact, treatedBody mass index (BMI) 31.0-31.9, adult 3 Justine Hendricks. [address] [facility] [address], [place], [address], [place]. tel:[phone] Referring Provider: Ruthie Fletcher, [address] [facility] [address], [place], [address]. tel: [phone] Office/Establ ished Level [address] , [place], [place], [address], [place] tel: [phone] [facility] Nexplanon Removal (chief complaint)IU D Insertion (chief complaint) Body mass index [BMI] 29.0-29.9, adultEncount er for IUD insertionEnc ounter for screening for infections with a predominantl y sexual mode of transmission Encounter for screening for other infectious and parasitic diseasesBrea kthrough bleeding on NexplanonPre sence of (intrauterin e) contraceptiv e deviceBirth control counselingNe xplanon removalEncou nter for routine checking of intrauterine contraceptiv e deviceCounse ling and instruction in natural family planning to avoid 2 Justine Hendricks. [address] [facility] [address], [place], [address], [place]. tel:[phone] Referring Provider: Ruthie Fletcher, [address] [facility] [address], [place], [address]. tel: [phone] Office/Establ ished Level [address] , [place], [place], [id number], [place] tel: [phone] [facility] Irregular menses (chief complaint) Body mass index [BMI] 29.0-29.9, adultMenorrh agia with regular cycleIrregul ar menstruation , unspecified 2 Justine Hendricks. [address], [place], [address], [place]. tel:[phone] Referring Provider: Tameka Laughlin, [address] [place], [address]. tel: [phone] Preventative Established 18-[address] [place], [id number], [place] tel: [phone] [facility] Preventive exam (chief complaint) Body mass index [BMI] 30.0-30.9, adultAnnual physical examDizzines sVitamin B12 deficiencyVi tamin D deficiencyAn emia, unspecified type 2 Qian English. [address] [place] [address], [id number], [place]. tel:[phone] Referring Provider: Tameka Laughlin, [address] [place] [address], [address]. tel: [phone] Office/Establ ished Level [address] [place], [id number], [place] tel:[phone] [facility] F/u visit (chief complaint) Body mass index (BMI) 30.0-30.9, adultIrregul ar periods/mens trual cyclesMigrai ne without status migrainosus, not intractable, unspecified migraine typeVitamin D deficiencyEn counter for screening for lipoid disorders 2 Qian English. [address] [place] [address], [id number], [place]. tel:[phone] Referring Provider: Tameka Laughlin, [address] [place] [address], [address]. tel: [phone] [address] [place], [id number], [place] tel:[phone] [facility] Acute cystitis with hematuria 1 Qian English. [address] [place] [address], [id number], [place]. tel:[phone] [place], [id number], [place] tel:[phone] [facility] Hematuria, unspecifiedF requency of micturition 1 Qian English. [address] [place] [address], [id number], [place]. tel:[phone] Referring Provider: Tameka Laughlin [address] [place] [address], [address]. [phone] [facility] [address] [place], [id number], [place] tel:[phone] [facility] Acute care visit (chief complaint) Body mass index (BMI) 28.0-28.9, adultUrinary frequencyMig julisa without status migrainosus, not intractable, unspecified migraine typeAcute cystitis with hematuria 1 Qian English. [address] [place] [address], [id number], [place]. tel:[phone] Referring Provider: Tameka Laughlin [address] [place] [address], [address]. [phone] Preventative Established 18-[address] [place], [id number], [place] tel:[phone] [facility] Preventive exam (chief complaint) Body mass index (BMI) 29.0-29.9, adultEncount er for gynecologica l examination (general) (routine) without abnormal findingsAnnu al physical examScreenin g, lipidIron deficiency anemia, unspecified iron deficiency anemia type 0 Qian English. [address] [place] [address], [id number], [place]. tel:[phone] Referring Provider: Tameka Laughlin [address] [place] [address], [address]. tel:[phone] [facility] [address] [place], [id number], [place] tel:[phone] [facility] Rash (chief complaint) Allergic reaction to drug, initial encounterBod y mass index (BMI) pediatric, 85th percentile to less than 95th percentile for age 0 Ramsay Hollie. [address] [place] [address], [id number], [place]. tel:[phone] Referring Provider: Hollie Ramsay, [address] [place] [address], [address]. tel:[phone] [place], [address], [place] tel:[phone] [facility] for routine child health exam w/o abnormal findings 9 Padma Garcias. [address] [place] [address], [address], [place]. tel:[phone] Preventative Established 12-[address] [place], [address], [place] tel:[phone] [facility] Well Child (chief complaint) [facility] for routine child health exam w/o abnormal findingsBMI pediatric, 85% to less than 95th percentile for age 9 Padma Garcias. [address] [place] [address], [address], [place]. tel:[phone] Referring Provider: Katerine Rouse, [address] [place] [address], [address]. [phone] Office/Establ ished Level [address] [place], [id number], [place] tel:[phone] [facility] Anxiety (chief complaint)[place] adache (chief complaint) AnxietyFront al headache 201 8 Cabrera Carrillo. [address] [place] [address], [id number], [place]. tel:[phone] Referring Provider: Lorena Rees, [address] [place] [address], [address]. [phone] Preventative Established 12-[address] [place], [id number], [place] tel: [phone] [facility] Well Child (chief complaint) Encntr for routine child health exam w/o abnormal findingsBMI pediatric, 85% to less than 95th percentile for ageVitamin D deficiency 8 Yaw Calvillo. [address] [facility], [address], [place], [address], [place]. tel:[phone] Referring Provider: Karli Tidwell, [address] [place] [address] [address], [place], [address]. tel: [phone] [address] , [place], [place], [id number], [place] tel: [phone] [facility] At [facility] rest Migraine, unsp, not intractable, without status migrainosus Yaw Calvillo. [address] [facility], [address], [place], [address], [place]. tel:[phone] Referring Provider: Ewelina Doran, [address] [place] [address], [address]. tel: [phone] Office/Establ ished Level [address] , [place], [place], [id number], [place] tel: [phone] [facility] headache (chief complaint) Migraine without status migrainosus, not intractable, unspecified migraine typeAnxiety Yaw Calvillo. [address] [place] [address], [address], [address], [place]. tel:[phone] Referring Provider: Aguilar Doran, [address] [place] [address], [address]. tel: [phone] Office/Establ [facility] [address] [place], [place], [id number], [place] tel: [phone] [facility] At headache (chief complaint) Migraine without status migrainosus, not intractable, unspecified migraine type 8 Espinoza Sheikh. [address] [place] [address], [address], [place]. tel:[phone] Referring Provider: Aguilar Doran, [address] [place] [address], [place], [address]. [phone] [facility] [address] , [place], [place], [id number], [place] tel:[phone] [facility] sore throat (chief complaint) Branchial cleft cystSwollen tonsil 8 Espinoza Theodore. [address] [facility], [place], [address], [place]. tel:[phone] Referring Provider: Amara Bond, [facility] Lydia Ferguson [facility] [address], [place], [address]. tel:[phone] , [place], [place], [address], [place] tel:[phone] [facility] No Information 7 Yaw Calvillo. [address] [facility], [address], [place], [address], [place]. tel:[phone] Referring Provider: Karli Tidwell, [address] [facility] [address], [place], [address]. tel:[phone] Office/Establ [address] , [place], [id number], [place] tel:[phone] [facility] sore throat (chief complaint) Sore throatAcute URIAcute right otitis media 6 Varun Maloney. [facility]4 Lydia Ferguson, [facility] [address], [place], [place], [id number], [place]. tel:[phone] Referring Provider: Amara Bond, [facility]4 Lydia Ferguson [facility] [address], [place], [address]. tel:[phone] Preventative Established 12-[address] [place], [id number], [place] tel:[phone] [facility] Well Child (chief complaint) Encntr for routine child health exam w/o abnormal findingsBMI pediatric, 85% to less than 95th percentile for age Dec- 6 Marlene Abdi. [address] [place], [place], [id number], [place]. tel:[phone] Referring Provider: Trinidad Mazariegos, [facility] [place], [address]. [phone] , [place], [place], [address], [place] [phone] [facility] At Dizziness (chief complaint)he adache (chief complaint) DizzinessFro ntal headache 5 Marlene Abdi. [address] [place] [address], [id number], [place]. tel:[phone] Referring Provider: Beatriz Ivory, [address] [place] [address] Roberto, [place], [address]. [phone] [place], [place], [address], [place] [phone] [facility] No Information Estephanie Lopez. [address] [place] [address], [id number], [place]. tel:[phone] Referring Provider: Jessica Hummel, [address] [place] [address], [address]. tel:[phone] [place], [place], [id number], [place] [phone] [facility] Nurse visit (chief complaint) No Information 4 Eres Lorena. [address] [facility], [place], [place], [id number], [place]. tel:[phone] Referring Provider: Lorena Rees, [address] [place], [address]. tel:[phone] , [place], [address], [place] tel:[phone] [facility] Well Child (chief complaint) No Information 4 Dianelys Beatriz. [address] [place] [address] Rd, [place], [place], [id number], [place]. tel:[phone] Referring Provider: Jessica Hummel, [address] [place] [address], [address]. tel:[phone] , [place], [place], [address], [place] tel: [phone] [facility] No Information 2 Unidentifi ed Provider. [address] [place] [address], [address], [place]. [address] , [place], [place], [address], [place] tel:[phone] [facility] No Information 2 Unidentifi ed Provider. [address] [place] [address], [address], [place]. [address] , [place], [place], [address], [place] tel: [phone] [facility] No Information 1 Unidentifi ed Provider. [address] [place] [address], [address], [place]. [address] , [place], [place], [address], [place] tel:[phone] [facility] No Information 0 Unidentifi ed Provider. [address] [place] [address], [address], [place]. [address] [place], [place], [address], [place] tel: [phone] [facility] No Information Marino-2 8-201 0 Unidentifi ed Provider. [address] [place] [address], [address], [place]. [address] , [place], [place], [id number], [place] tel:[phone] [facility] No Information 0 8-200 6 Unidentifi ed Provider. [address] [place] [address], [address], [place]. [address] , [place], [place], [id number], [place] tel:[phone] [facility] No Information 0 5-200 5 Unidentifi ed Provider. [address] [place] [address], [address], [place]. [address] , [place], [place], [address], [place] tel:[phone] [facility] No Information 4-200 3 Unidentifi ed Provider. [address] [place] [address], [address], [place]. [address] , [place], [place], [address], [place] tel:[phone] [facility] No Information 7-200 3 Unidentifi ed Provider. [address] [place] [address], [address], [place]. [address] , [place], [place], [address], [place] tel:[phone] [facility] No Information 7-200 3 Unidentifi ed Provider. [address] [place] [address], [address], [place]. [address] , [place], [place], [address], [place] tel:[phone] [facility] No Information 3-200 3 Unidentifi ed Provider. [address] [place] [address], [address], [place]. [address] , [place], [place], [address], [place] tel:[phone] [facility] No Information Dec-1 3-200 2 Unidentifi ed Provider. [address] [place] [address], [address], [place]. [address] , [place], [place], [address], [place] tel:[phone] [facility] No Information Sep-0 5-200 2 Unidentifi ed Provider. [address] [place] [address], [address], [place]. [address] , [place], [place], [address], [place] tel:[phone] [facility] No Information August-0 9-200 2 Unidentifi ed Provider. [address] [place] [address], [address], [place]. [address] , [place], [place], [address], [place] tel:[phone] [facility] No Information Jun- 4-200 2 Unidentifi ed Provider. [address] [place] [address], [address], [place]. [address] , [place], [place], [address], [place] tel:[phone] [facility] No Information Apr-2 4-200 2 Unidentifi ed Provider. [address] [place] [address], [address], [place]. [address] , [place], [place], [address], [place] tel:[phone] [facility] No Information 2 2-200 2 Unidentifi ed Provider. [address] [place] [address], [address], [place]. [address] , [place], [place], [address], [place] tel:[phone] [facility] No Information Apr-0 4-200 2 Unidentifi ed Provider. [address] [place] [address], [address], [place]. [address] , [place], [place], [address], [place] tel:[phone] [facility] No Information Nov-1 9-200 1 Unidentifi ed Provider. [address] [place] [address], [address], . [address] , [place], [place], [address], tel:[phone] [facility] No Information 200 1 Unidentifi ed Provider. [address] [place] [address], [address], . [address] [place], [place], [address], [place] tel:[phone] [facility] No Information 1 Unidentifi ed Provider. [address] [place] [address], [address], . Family History Family Member Type Diagnosis Age At Onset Maternal grandfather Problem Diabetes mellitus Paternal grandmother Problem Alive and well Mother Problem anemia Paternal grandfather Problem Alive and well Mother Problem (finding) Maternal histo ry of diabetes mellitus Maternal grandmother Problem Alive and well Father Problem Alive and well Mother Problem Alive and well Immunizations Vaccine Date Status Comments FLULAVAL 6m+/FLUZONE 6m+ administered Not e: pt declined ; Source: Other Registry Tdap administered Source: New Imm unization Record FLULAVAL 6m+/FLUZONE 6m+ administered Pinky rce: New Immunization Record Influenza, recombinant, injectable, trivalent, preservative free Flublok refused Source: New Immuniza tion Record COVID-19 Vaccine (Pfizer) administered So urce: Other Provider COVID-19 Vaccine (Pfizer) administered So urce: Other Provider Influenza Refused refused Source: Ne w Immunization Record meningococcal B, OMV, 2 dose schedule administered Source: New Immuniza tion Record meningococcal B, OMV, 2 dose schedule administered Source: New Immuniza tion Record Meningococcal MCV4O administered Source: New Immunization Record Influenza, injectable, quadrivalent, preservative free, split virus 3 years or older, Fluarix Quad refused Source: Ne w Immunization Record HPV (quadrivalent) administered Source: N ew Immunization Record HPV (quadrivalent) administered Source: N ew Immunization Record HPV (quadrivalent) administered Source: N ew Immunization Record Meningococcal administered Note: Recorded 09/16/2012 8:13AM by KATHERIN Steve, Review ; Source: New Immunization Record Tdap (7 years and up) administered Note: Recorded 09/18/2011 7:24AM by Pawan Orozco LPN, Office Visit ; Source: New Immunization Record Hep A pediatric/adolescent ( 2 dose) administered Note: Recorded 09/16 8:40AM by KATHERIN Steve, Review ; Source: New Immunization Record Influenza (3 years and up) administered N ote: Recorded 09/16/2012 8:41AM by KATHERIN Steve, Review ; Source: New Immunization Record Hep A pediatric/adolescent ( 2 dose) administered Note: Recorded 09/16 8:40AM by KATHERIN Steve, Review ; Source: New Immunization Record Varicella administered Note: Recorded 09/16/2012 8:40AM by KATHERIN Steve, Review ; Source: New Immunization Record Influenza, live, intranasal administered Note: Recorded 09/16/2012 8:41AM by KATHERIN Steve, Review ; Source: New Immunization Record IPV administered Note: Recorded 09/16/2012 8:37AM by KATHERIN Steve, Review ; Source: New Immunization Record MMR administered Note: Recorded 09/16/2012 8:40AM by KATHERIN Steve, Review ; Source: New Immunization Record DTaP administered Note: Recorded 09/16/2012 8:12AM by KATHERIN Steve, Review ; Source: New Immunization Record DTaP administered Note: Recorded 09/16/2012 8:12AM by KATHERIN Steve, Review ; Source: New Immunization Record HIB (HbOC) administered Note: Recorded 09/16/2012 8:37AM by KATHERIN Steve, Review ; Source: New Immunization Record DTaP administered Note: Recorded 09/16/2012 8:12AM by KATHERIN Steve, Review ; Source: New Immunization Record Pneumococcal (5 years and under) administered Note: Recorded 09/16 8:39AM by KATHERIN Steve, Review ; Source: New Immunization Record MMR administered Note: Recorded 09/16/2012 8:39AM by KATHERIN Steve, Review ; Source: New Immunization Record IPV administered Note: Recorded 09/16/2012 8:37AM by KATHERIN Steve, Review ; Source: New Immunization Record Varicella administered Note: Recorded 09/16/2012 8:40AM by KATHERIN Steve, Review ; Source: New Immunization Record Pneumococcal (5 years and under) administered Note: Recorded 09/16 8:39AM by KATHERIN Steve, Review ; Source: New Immunization Record Pneumococcal (5 years and under) administered Note: Recorded 09/16 8:39AM by KATHERIN Steve, Review ; Source: New Immunization Record Pneumococcal (5 years and under) administered Note: Recorded 09/16 8:39AM by KATHERIN Steve, Review ; Source: New Immunization Record DTaP administered Note: Recorded 09/16/2012 8:12AM by KATHERIN Steve, Review ; Source: New Immunization Record Hep B pediatric/adolescent administered N ote: Recorded 09/16/2012 8:38AM by KATHERIN Steve, Review ; Source: New Immunization Record IPV administered Note: Recorded 09/16/2012 8:37AM by KATHERIN Steve, Review ; Source: New Immunization Record HIB (HbOC) administered Note: Recorded 09/16/2012 8:37AM by KATHERIN Steve, Review ; Source: New Immunization Record DTaP administered Note: Recorded 09/16/2012 8:12AM by KATHERIN Steve, Review ; Source: New Immunization Record HIB (HbOC) administered Note: Recorded 09/16/2012 8:37AM by KATHERIN Steve, Review ; Source: New Immunization Record Hep B pediatric/adolescent administered N ote: Recorded 09/16/2012 8:38AM by KATHERIN Steve, Review ; Source: New Immunization Record IPV administered Note: Recorded 09/16/2012 8:13AM by KATHERIN Steve, Review ; Source: New Immunization Record Hep B pediatric/adolescent administered N ote: Recorded 09/16/2012 8:38AM by KATHERIN Steve, Review ; Source: New Immunization Record Payers Payer name Insurance type Covered republican ID Authoriza tion(s) [facility] Medicaid - [id number] [address] [place] [address] - [id number] Social History Type Description Quantity Date Captured Comments Sex Female Smoking Status No Information Chief Complaint And Reason For Visit No Information Reason For Referral Reason For Referral No Information Plan Of Treatment Date Type Action Status Goal PAP. Due on due Goal Hepatitis C screening. Due o n due Goal HPV (3rd) due Goal Physical Exam. Due on due Goal Rubeola Antibody Titer (igG). Due on due Goal Diabetes screening. Due on O ct due Goal HPV (1st) due Goal HPV (2nd) due Goal Influenza Vaccine. Due on Oc t due Goal Tdap. Due on due Goal Td vaccine. Due on due Goal Physical Exam. Due on due Goal HPV (3rd) due Goal HPV (2nd) due Goal Influenza Vaccine. Due on Oc due Goal Diabetes screening. Due on O ct due Goal Td vaccine. Due on due Goal Hepatitis C screening. Due o n due Goal Tdap. Due on due Goal PAP. Due on due Goal Rubeola Antibody Titer (igG). Due on due Goal HPV (1st) due Goal HPV (1st) due Goal Td vaccine. Due on due Goal PAP. Due on due Goal Rubeola Antibody Titer (igG). Due on due Goal HPV (2nd) due Goal HPV (3rd) due Goal Hepatitis C screening. Due o n due Goal Diabetes screening. Due on O due Goal Physical Exam. Due on due Goal Tdap. Due on due Goal Influenza Vaccine. Due on Oc due Goal HPV (3rd) due Goal Td vaccine. Due on due Goal Tdap. Due on due Goal HPV (1st) due Goal Depression screening. Due on due Goal PAP. Due on due Goal Diabetes screening. Due on O due Goal Physical Exam. Due on due Goal Influenza Vaccine. Due on Oc due Goal HPV (2nd) due Goal Dietary manageme nt education, guidance, and counseling completed Goal Depression screening. Due on due Goal HPV (3rd) due Goal HPV (1st) due Goal Physical Exam. Due on due Goal Influenza Vaccine. Due on Oc due Goal Diabetes screening. Due on O due Goal Tdap. Due on due Goal Td vaccine. Due on due Goal PAP. Due on due Goal HPV (2nd) due Goal Dietary manageme nt education, guidance, and counseling completed Goal Depression screening. Due on due Goal Diabetes screening. Due on O due Goal PAP. Due on due Goal HPV (1st) due Goal Td vaccine. Due on due Goal Influenza Vaccine. Due on Oc due Goal Physical Exam. Due on due Goal HPV (3rd) due Goal Tdap. Due on due Goal HPV (2nd) due Goal Dietary manageme nt education, guidance, and counseling completed Goal HPV (1st) due Goal Rubeola Antibody Titer (igG). Due on due Goal Influenza Vaccine. Due on Se due Goal Depression screening. Due on due Goal Tdap. Due on due Goal Diabetes screening. Due on O due Goal HPV (2nd) due Goal Td vaccine. Due on due Goal Physical Exam. Due on due Goal HPV (3rd) due Goal Dietary manageme nt education, guidance, and counseling completed Goal Influenza Vaccine. Due on Se due Goal Depression screening. Due on due Goal Physical Exam. Due on due Goal Rubeola Antibody Titer (igG). Due on due Goal HPV (2nd) due Goal Diabetes screening. Due on O due Goal HPV (1st) due Goal Tdap. Due on due Goal HPV (2nd) due Goal Physical Exam. Due on due Goal Influenza Vaccine. Due on Se due Goal Diabetes screening. Due on O due Goal Rubeola Antibody Titer (igG). Due on due Goal Depression screening. Due on due Goal Tdap. Due on due Goal HPV (1st) due Goal Dietary manageme nt education, guidance, and counseling completed Goal Depression screening. Due on due Goal HPV (2nd) due Goal Rubeola Antibody Titer (igG). Due on due Goal Physical Exam. Due on due Goal Tdap. Due on due Goal HPV (1st) due Goal Diabetes screening. Due on O due Goal Dietary manageme nt education, guidance, and counseling completed Goal HPV (2nd) due Goal Rubeola Antibody Titer (igG). Due on due Goal HPV (1st) due Goal Well visit (18 years). Due o n due Goal Lipid Panel - LIPID due Goal Depression screening. Due on due Goal Diabetes screening. Due on A due Goal Lipid Panel - LIPID (16 yr) due Goal Physical Exam. Due on due Goal Well visit (17 years) due Goal Dietary manageme nt education, guidance, and counseling completed Goal Well visit (17 years). Due o n due Goal Well visit (16 years) due Goal Diet education completed Goal Well visit (16 years). Due o n due Goal Well visit (16 years). Due o n due Goal Well visit (16 years). Due o n due Goal Well visit (16 years). Due o n due Goal Hearing screen (10-21 yr) du e Goal Well visit (15 years). Due o n due Goal Vision screen (15-17 yr) due Goal Hematocrit due Goal Vision screen (18-21 yr) due Goal Diet education completed Referral Ordered: Referrals: Gynecology. Consult Appointment date/timeframe: Routine ordered Referral Ordered: Clinical Psychology - Pediatrics (related to Anxiety) ordered Referral Ordered: Referrals: Clinical Psychology - Pediatrics. Consult ordered Referral Ordered: Referrals: Clinical Psychology - Pediatrics ordered Referral Ordered: [facility] (related to Body Mass Index, pediatric, 85th percentile to less than 95th percentile for age) ordered Referral Ordered: Referrals: [facility] ordered Patient Education Well Visit, 12 years to Young Teen: Care completed Patient Education Anxiety Disorder: Care Instructions completed Patient Education Well Visit, 12 years to Young Teen: Care completed Patient Education Learning About Stress c ompleted Patient Education Depression and Chronic Disease: Care Ins completed Patient Education Headache: Care Instruct ions completed Patient Education Well Care???Tips for Te ens: After Your completed History Of Present Illness Encounter Date Complaint History Of Prese nt Illness BV Patient with vag inal odor and discharge, describes discharge color as sometimes barroso or green IUD surveillance The symptoms be linda 4 weeks ago and generally lasts 4 Weeks. IUD placed without complications. Pt had some spotting no continued VB or pain.States her partner can feel the strings and that they are cutting him.Also having some malodorous vaginal discharge IUD Check HERE FOR IUD MELANIE CK S/P INSERTION - MIRENA INSERTED 02/20/22doing well so far and happy with method.Reports continues to have irregular spotting and uterine cramping that is well tolerated since insertion. She had a sure period 1-2wks ago that was normal flow .She denies any discomfort post-insertion; no dyspareunia, vaginal dc/odor/itch/irritation, dysuria, fever, chills, or pelvic pain. She has felt her strings.02/2022 - POS CT, NO S/S - DONE FOR STI SCREENING W/ IUD INSERTIONPOSITIVE CT, TREATEDCANCELED VASQUEZ APPT - WANTS TO DISC POS CT TODAYCOMPLIANT W/ RX, REMAINS ASYMPTOMATIC IUD Insertion Mirena Nexplanon Removal Irregular menses Preventive exam Currently pregna nt: no. The patient states she uses Nexplanon for control. Last LMP was 12/28/2021. Her menses is regular with normal flow with a frequency of every 28 days. Negative for: breast discharge, breast lump(s), breast pain and breast self exam. Diet healthy. She reports getting calcium from dietary sources. She reports taking a vitamin D supplement daily. She is getting adequate sunlight exposure. She does not take multivitamins. The patient does not use tobacco. She does drink alcohol. Additional information: On Nexplanon until 2024. Sexually active and not using protection all the time. Last Pap 2019 normal. Up to date on HPV. For last 4 mon having episodes of dizzy when cleaning and felt warm. feels tight back of head and feels dizzy vertigo sensation and resolves in 1-2 min when resting.. F/u visit Patient is here to discuss menstrual irregularity. Menarche at age 12. Has monthly cycles since then. She has Nexplanon implant placed 2 years ago. Doing well until 3 months ago started with bleeding midcycle. Regular period last for 1 week and midcycle has bleeding manager cable using 2 tampons lasting for 4 days. Still has cramps. Currently sexually active and not using protection and is on Nexplanon implant for contraception. No family history of fibroids2. Ongoing migraine headaches usually 2 to 3/week. Taking OTC, pack with some relief. Usually frontal throbbing in nature associated with mild nausea feels better with sleep. Never started on prescription medications.3. Vitamin D deficiency not on supplements. Last vitamin D level 21 in 2017.Portion of this note may be dictated using [employer] voice recognition software. Not all errors are caught or corrected. Notify if uncorrected errors are found. Acute care visit Pt is here with 2 days history of urinary symptoms with dysuria frequency and urgency and now blood in urine not resolving. No previous UTI. No fever or back pain. Sexually active and uses protection.2. Migraine headache doing well and taking as needed tylenol Preventive exam Currently pregna nt: no. Patient is not contemplating . The patient states she uses Nexplanon for control. Last LMP was 01/27/2019. Her menses is irregular. Negative for: breast discharge, breast lump(s), breast pain and breast self exam. Associated symptoms include anxiety and depression. Pertinent negatives include abnormal bleeding (hematology) and urinary incontinence. She reports getting calcium from dietary sources. She is getting adequate sunlight exposure. She does take multivitamins. The patient does not use tobacco. She has not been exposed to passive smoke. She does drink alcohol. Additional information: History of Migraine GRIFFITH Anxiety and depression. Currently stable. Here for PXS and screening labs. Rash (comments) Keflex rx on by eye dr ([facility]) for bacterial infection of both eyelids . Last dose todayEyes are much betterYesterday developed an itchy rash No new lotions, soaps, laundry products or foods. Only thing new / different is this abx. Rash Onset 1 day ago. Location is abdomen, arm, back, face and leg. The describes it as erythematous, itchy and papular. It occurs continuously. The problem is with no change. Denies aggravating factors. Denies relieving factors. Pertinent negatives include fever and sore throat. Well Child Patient here for well adolescent check, no concerns.Mom would like to know if we can check labs today. She would like her sugar checked. Anxiety This is a follow up visit. The first episode occurred in 2018. There is improvement of initial symptoms. The patient reports functioning as somewhat difficult. The patient presents with anxious/fearful thoughts, compulsive thoughts and excessive worry but denies decreased need for sleep, depressed mood or thoughts of or suicide. The Anxiety is aggravated by conflict or stress. The Anxiety is associated with headache. Anxiety (comments) Was referred for therapy in the past, but did not follow through. The panic attacks have decreased, but bree still feels generalized anxiety Headache (comments) Typically fr ontal. Stress esacerbates. Not worse at noc, or upon waking in the morning. No coordination or personality changes noted Headache The severity of the problem is mild. The problem is improving. Locations affected include frontal. Symptoms are associated with stress. Pertinent negatives include vomiting. 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 Th e problem has resolved. Headache timing includes daytime. Symptoms are associated with stress. Aggravating factors include stress. Symptoms are relieved by OTC meds. Pertinent negatives include blurred vision, dizziness, fever, nausea, phonophobia, photophobia, visual aura, vertigo or vomiting. Additional information: [facility] yesterday for c/o anxiety attack then headache while driving yesterday , symptoms resolved today. headache Onset: 1 Day. Th e severity of the problem is moderate. The problem has not changed. The symptoms are intermittent. Locations affected include frontal. Headache timing includes daytime. Aggravating factors include anxiety. Denies relieving factors. Associated symptoms include nausea. Pertinent negatives include blurred vision, dizziness, fever, hemianopsia left, hemianopsia right, loss of consciousness, memory impairment, personality changes, phonophobia, photophobia, vision loss left, vision loss right, visual aura or vomiting. sore throat Onset: 1 day ago . The severity of the problem is moderate. Denies aggravating factors. Pertinent negatives include cough, decreased urine output, diarrhea and nasal congestion. Additional information: Jayla on R neck not sure if she felt a lymph node, no fevers. sore throat Onset: 2 Days ag o. The severity of the problem is moderate and has worsened. The symptoms are persistent. Symptoms are associated with sick family member. Associated symptoms include cough, nasal congestion, otalgia, pharyngitis and rhinitis. Pertinent negatives include decreased appetite, dyspnea, fever, headache, rash and wheezing. Additional information: has not taken any medications. Well Child (comments) 10th grade at [employer], Grades are going well. Loves to take dance and piano. Well Child headache Onset: 2 Weeks. Locations affected include frontal. Denies aggravating factors. Symptoms are relieved by analgesics. Relieving factors additional comments: usually self resolve, yesterday took 1 tylenol. Associated symptoms include dizziness. Pertinent negatives include blurred vision, fever, loss of consciousness, phonophobia, photophobia, neck stiffness, vision loss left, vision loss right, visual aura, vertigo or vomiting. Additional information: Occurs at different times of days, but most often afer getting home from school. Never wakes from sleep. Contact lens wearer, visit within 6 mo. LMP 1 mo ago. headache (comments) Family histo ry of migraines. Skips meals, most often breakfast. Drinks minimal water during the day. Dizziness Onset was 1 day ago. Pertinent negatives include chest pain, fever, hearing loss, incoordination, loss of consciousness, nausea, neck stiffness, otalgia, palpitations, slurred speech, tinnitus, vision loss, vomiting and weakness. Additional information: Occurs when she gets up too fast. No syncopal episodes. Nurse visit Well Child Patient here for well check, no concerns. Functional Status Date Functional Assessmen t No Information Instructions Date Instruction Additional Infor joe Dietary management e ducation, guidance, and counseling Related to Body mass index (BMI) 29.0-29.9, adult Dietary management e ducation, guidance, and counseling Related to Body mass index (BMI) 29.0-29.9, adult Dietary management e ducation, guidance, and counseling Related to Body mass index (BMI) 30.0-30.9, adult Dietary management e ducation, guidance, and counseling Related to Body mass index (BMI) 30.0-30.9, adult Dietary management e ducation, guidance, and counseling Related to Body mass index (BMI) 28.0-28.9, adult Dietary management e ducation, guidance, and counseling Related to Body mass index (BMI) 29.0-29.9, adult Stop KeflexAs eye in fection has resolved, and on last days dose, no further antibiotic prescription neededTake antihistamine, such as Zyrtec or Funmilayo once dailyRecheck in 4-5 days if symptoms persist or sooner if change or worsening symptoms. Related to Allergic reaction to drug, initial encounter Patient to work on [employer] diet and activity Related to BMI pediatric, 85% to less than 95th percentile for age Patient is doing wel l overallVaccines are up to dateScreening labs obtained today Related to Encntr for routine child health exam w/o abnormal findings Dietary management e ducation, guidance, and counseling Related to Body mass index (BMI) pediatric, 85th percentile to less than 95th percentile for age BMI is normal; jair nue diet high in fruits and vegetables; at least one hour physical exercise daily Related to BMI pediatric, 85% to less than 95th percentile for age Diet education Related to Body mass index (BMI) pediatric, 85th percentile to less than 95th percentile for age Push fluids, promote rest, dim lights and sound Deep breathing; prom ote rest; f/u with PCP for ongoing symptoms Related to Panic attack Counseled on most li syed viral origin and supportive care. Increase liquids. Warm saltwater gargles. If fever or symptoms worsening or not improving in 5-7 days please return to clinic. Related to Swollen tonsil Counseled on type of skin papule. Try to not pick at it. Apply triple antibiotic ointment three times a day for five days, may try warm soaks. If fevers, redness, swelling or difficulty swallowing please return to clinic. 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 Over the counter comfort care as needed. Follow up if symptoms persist or worsen. Related to Acute URI Increase fluids and rest. Over the counter comfort care as needed. Follow up if symptoms persist or worsen. Related to Acute right otitis media Increase fluids and rest. Over the counter comfort care as needed. Follow up if symptoms persist or worsen. Related to Sore throat Recommend gargling Related to So re throat Elevated BMI on exam today. Educated at length re: exercise and diet. 60 minutes of physical activity daily, limiting screen time.Eliminating sugared beverages, well-balanced diet including limiting high fat/fast foods. Related to BMI pediatric, 85% to less than 95th percentile for age Diet education Related to Body mass index (BMI) pediatric, 85th percentile to less than 95th percentile for age Keep GRIFFITH log.250 mg M agnesium daily.Increase H20, 64 oz dailyRTC for acute worsening or new findings, otherwise f/u in 1 mo. Related to Frontal headache Assessments Type Assessment Date No Information Patient Care Teams Name Effective Dates (start - stop) Status Members No Information
--- OUTSIDE RECORDS SUMMARY | 2024-01-19 05:32 | XMS_ITS | Continuity of Care Document ---
Author Organization [facility] Address [address] [place] [address] Phone Care Team Providers Care Convolute Tube Winder Name Role Phone Fuchs OD, Lorena Unavailable Unavailable Allergies, Adverse Reactions, Alerts Substance Reaction Status Criticality No Known Allergies Active No Inform ation Procedures Procedure Date OFFICE/OUTPATIENT VISIT, NEW NO CHARGE REFRACTION CONTACT LENS EVALUATION Routine ophthalmological exam 9 CONTACT LENS FITTING CTL Tech 9 Routine ophthalmological exam 8 CONTACT LENS FITTING CTL Tech 8 NO CHARGE REFRACTION OFFICE/OUTPATIENT VISIT, EST Routine ophthalmological exam 7 CONTACT LENS FITTING CTL Tech 7 OFFICE/OUTPATIENT VISIT, EST Routine ophthalmological exam 6 CONTACT LENS FITTING CTL Tech 6 OFFICE/OUTPATIENT VISIT, NEW Advance Directives Directive Yes / No Effective Date File Name No Information Encounters Encounter Description Practice Location Reason(s) For Visit Diagnoses Date Provider Providers Copied on Encounter [facility] [address], [place], [id number], [place] tel:[phone] [facility] No Information 4 Fuchs Lorena. [address] [place], [address], [place]. tel:[phone] OFFICE/OUTPA TIENT VISIT, [facility] [address], [place], [id number], [place] tel:[phone] [facility] Eval (chief complaint) Bilateral asthenopiaMyo padma, bilateral Sep-2 5202 3 Sal Carrillo. [address] [place], [address], [place]. [phone] Referring Provider: Lorena Alcantara, [address] [place] [address], [address]. tel:[phone] [facility], [place], [id number], [place] [phone] [facility] comprehensive exam (chief complaint) Myopia, bilateral Dec-2 9 Tariq Smith. [address] [place] [address], [id number] , [place]. [phone] Referring Provider: Jonas Donahue, [address] [place] [address], [address]. tel:[phone] [facility] [address] [place] [address], [id number], [place] [phone] [facility] myopia (chief complaint) No Information Dec-2 0201 9 Tariq Smith. [address] [place], [place], [id number] , [place]. [phone] Referring Provider: Sarah Schuler, [address] [place] [address], [address] . tel:[phone] [facility], [place], [id number], [place] [phone] [facility] CTL Comprehensive (chief complaint) Myopia OUAstigmatism OU Nov-3 0-201 8 Tariq Smith. [address], [place], [id number] , [place]. tel:[phone] Referring Provider: Jonas Donahue, [address] [place] [address], [address]. tel:[phone] OFFICE/OUTPA TIENT VISIT, EST [facility] [address], [place], [id number], [place] tel:[phone] [facility] pain (chief complaint) Stye RLL internal Oct-0 5-201 8 Tariq Smith. [address] [place] [address], [id number] , [place]. [phone] Referring Provider: Sarah Schuler, [address] [place] [address], [address] . tel:[phone] [facility] [address] [place] [address], [id number], [place] tel:[phone] [facility] comprehensive exam (chief complaint) Myopia OUAstigmatism OU Oct-0 3-201 7 Tariq Smith. [address], [place], [id number] , [place]. [phone] Referring Provider: Jonas Donahue, [address] [place] [address], [address]. tel:[phone] OFFICE/OUTPA TIENT VISIT, EST [facility] [address], [place], [id number], [place] tel:[phone] [facility] work in (chief complaint) Hordeolum internum right upper eyelid Apr-0 7-201 7 [facility]. [address] [place], [address], [place]. [phone] Referring Provider: Jonas Donahue, [address] [place] [address], [address]. tel:[phone] [facility] [address], [place], [id number], tel:[phone] [facility] comprehensive exam (chief complaint) Myopia OUAstigmatism OU 6 Tariq Sarah. [address] [place], [place], [id number] , [place]. [phone] Referring Provider: Dutch Briones, [address] [place], [address] . tel:[phone] OFFICE/OUTPA TIENT VISIT, [facility] [address], [place], [id number], [place] tel:[phone] [facility] comprehensive exam (chief complaint) Other specified visual disturbancesM yopiaAstigmat ism, unspecified 5 Saud Salazar. [address] [facility] , [place], [address], [place]. [phone] Referring Provider: [facility] [place], [address] . tel:[phone] Family History Family Member Type Diagnosis Age At Onset Mother Problem (finding) No history of Blindness Payers Payer name Insurance type Covered green party ID Authoriza tion(s) [employer] [id number] Social History Type Description Quantity Date Captured Comments Alcohol Use Details Unknown Caffeine Use Details Unknown Tobacco Use Status No Information Smoking Status No Information Sex Female Chief Complaint And Reason For Visit No Information Reason For Referral Reason For Referral No Information History Of Present Illness Encounter Date Complaint History Of Prese nt Illness CL Eval The 22 year old patient presents for evaluation of CL Eval in the right eye and left eye. ISI was a year ago. Pt states she has noticed a decrease in her DVA only. Pt denies F/F, eye pain, and HAs.Pt states she went to [facility] last year due to not having insurance and she believes they gave her the same ctls we use to give her. Pt states she believes they are the AirOptix. Pt states she likes the comfort and fit of her current ctls. Pt reports wearing ctls 12-14 hours a day. comprehensive exam The 18 year 3 month old female presents for evaluation of comprehensive exam in the right eye and left eye. Pt was here for CTL eval on Sunday03/28/19. Pt denies changes since then. Pt states she uses contacts more than she does her glasses. myopia The 18 year 3 mo nth old female presents for evaluation of myopia in the right eye and left eye. Pt is being seen for CTLS eval only and is scheduled for DFE with Dr. Potter on 03/31/19. Patient currently wears Air Optix HydraGlyde CTLS OU. Patient states she has not noticed any changes in vision since last eye exam. Patient states comfort in lenses is good and no dryness issues. Patient wears CTLS for about 12hrs per day, 7 days per week, and does not sleep in them. Patient disposes of CTLS every month as recommended and current pair is over 1 month.Patient denies eye pain, flashes and floaters. CTL Comprehensive The 17 year 2 month old female presents for evaluation of CTL Comprehensive in the right eye and left eye. Pt states that DVA and NVA good in contact lenses. Pt wears the CTL 6-7 days a week, 8-12 hours a day, and denies sleeping in them. Pt states that she sometimes gets irritation and itchy eyes with contact lens use, but might be from not cleaning them enough. Pt replaces CTL every 30 days. Pt denies flashes, floaters. pain The patient is p resent for evaluation of pain in the right eye. Pt states some pain and swelling on the right lower lid. Pt states she noticed yesterday that her eye was tender, today pt states she has pain and swelling. Pt states painful when she closes her eye. Pt uses gls and CTL. Pt wore CTL yesterday. Pt is not using any gtt at this time. Pt denies any tearing or discharge OD. comprehensive exam Patient has n oticed blurry distance vision OU with both contacts and glasses over the past 3-4 months. No pain or discomfort OU. Patient gets headaches on occasion but doesn't think it's because of eye strain (hasn't had any headaches recently). 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 Pt states 2 days ago the right lower cheek area was tender to the touch and if she blinked she could feel discomfort on the right cheek area. This morning she woke up and she had redness and swelling to right lower cheek. OD itself is fine. No vision changes OU. No redness, itching, tearing OU. comprehensive exam Patient can t ell vision may have gotten a little worse with current Rx for contacts and glasses. No headaches, pain or discomfort OU. comprehensive exam The 13 year 1 0 month old female presents for evaluation of comprehensive exam in the right eye and left eye. Pt complains of blurry DV. Pt's current glasses are 1 yr old. Pt says when she looks down at school paper then look back up at the board, it is blurry and takes a second to focus. Pt denies dry eyes. ISI 1 yr ago. Functional Status Date Functional Assessmen t No Information Instructions Date Instruction Additional Infor carmenion 1 year full with EF Related to M yopia, bilateral Impression/Plan Related to Bilat eral asthenopia Impression/Plan Related to Myopi a, bilateral Impression/Plan Related to Myopi a, bilateral 12 month full/CTL w/AB Related t o Myopia OU Impression/Plan Related to Myopi a OU Impression/Plan Related to Astig matism OU 7-10 day stye recheck w/ AB Rela alin to Stye RLL internal Impression/Plan Related to Stye RLL internal 12 month full CTL eval w/AB Rela alin to Myopia OU Impression/Plan - See Plan #1. R elated to Astigmatism OU Follow up - 12 month full CTL eval w/AB Related to Myopia OU Impression/Plan - Ne w MRx issuedCTLs Rx finalized: [facility], Air Optix Hydraglyde, 8.6OD: -3.00OS: -3.75 Related to Myopia OU PRN Related to Horde olum internum right upper eyelid Follow up - PRN Related to Horde olum internum right upper eyelid Impression/Plan - Pa tient ed today's findings.Recommend warm compresses QID & lid scrubs BID.Recommend a dress sock filled with raw white rice for maximum heating results.Patient ed if condition worsens will refer to AO for further evaluation. Monitor condition PRN, sooner dec [employer] sx. Related to Hordeolum internum right upper eyelid 1 yr full CTL exam w/ AB Related to Myopia OU Follow up - 1 yr full CTL exam w / AB Related to Myopia OU Impression/Plan - Ne w spectacle Rx issued.CTL Rx issued: Air Optix 8.6 -2.75 OD/-3.50 OS. Related to Myopia OU Impression/Plan - See Plan #1. R elated to Astigmatism OU Follow up - 12 mos comp exam Impression/Plan - Pt /mother ed today's findings. New MRx issued to patient today. Child to continue with FTSW. Patient advised on adapting to new Rx and to RTC if any problems with adapting. Monitor 12 mos, sooner if dec [employer] Sx. Assessments Type Assessment Date No Information Patient Care Teams Name Effective Dates (start - stop) Status Members No Information
--- NOTE | ~2025-03-06 | CT_ITS ---
CLINICAL HISTORY: abd pain --- Additional Notes or Special Instructions: preg needed CT abdomen and pelvis with contrast Comparison: CT/SR - CT ABDOMEN PELVIS W IV CON - 12/25/24 17:31 EDT Findings: Hiatal hernia. Hepatic steatosis. The left and right kidney, pancreas, spleen, and adrenals are within normal limits. No bowel obstruction, pneumoperitoneum, or pneumatosis. The appendix is within normal limits. The uterus is within normal limits. No acute fracture. IMPRESSION: 1. Hiatal hernia. 2. Hepatic steatosis. 3. No acute intraabdominal or pelvic pathology. This document has been electronically signed by: Bruce Draper MD on 03/06/2025 18:00:12
[2025-03-06 11:14] VITALS: BP 161/91; PULSE 86; RESP 20; TEMP 37; O2SAT 98; BMI 62.2
--- NOTE | 2025-03-06 11:15 | ED_ITS ---
HPI - General Adult General Chief complaint: Abdominal Pain Stated complaint: sharp abd pain Time Seen by Provider: 03/06/25 14:45 Source: patient Mode of arrival: ambulatory Limitations: no limitations History of Present Illness ED Provider: Yousif HPI narrative: Chief Complaint: ?I?ve been having really bad stomach aches for about a week.? History of Present Illness: ? 28-year-old female presents to the ED with one week of sharp abdominal pain ?right here? (patient pointed to abdomen, exact quadrant not specified). ? Pain severity described as ?really bad/sharp.? ? Associated symptom: episodes of significant shortness of breath (occur separately from pain). ? Denies nausea or vomiting. ? Denies burning pain radiating up into chest/reflux-type discomfort. ? Still has appendix and gallbladder (no prior appendectomy or cholecystectomy). ? No known cardiac history. ? Past medical history reported by accompanying family member: childhood thyroid issues, asthma, fatty liver disease. No current weight-loss medication use. ? Patient has not seen a doctor in a long time and needs to reestablish care with a primary provider. ? Current weight approximately 370 lbs (self-reported). Provider notes possible CT scanner weight limit of 350 lbs. ? Declines analgesics at this time. Related Data Previous Rx's ?Medication ?Instructions ?Recorded omeprazole 20 mg tablet,delayed 20 mg PO DAILY #14 tab s 03/06/25 release Allergies Allergy/AdvReac Type Severity Reaction Status Date / Time No Known Allergies Allergy Verified 03/06/25 11:17 Review of Systems 2 Review of Systems: Review of Systems: ? Constitutional: No fever mentioned. ? Respiratory: Episodes of shortness of breath. ? Gastrointestinal: Positive for sharp abdominal pain x1 week; denies nausea, denies vomiting, denies burning/GERD-type pain. (Multiple other systems not discussed.) Yes all other systems are reviewed and are negative PMFSH Past Medical History Attestation statement: The following information was validated with the patient. Source: old records reviewed and nursing notes reviewed Social History Social History Alcohol intake: never Patient Tobacco Use Status: Never used Tobacco Smoked in Last 30 Days: No Use of substances other than those prescribed or required for medical reasons: No Advance Directives: No Advance Directives Information Provided: No Patient : No Physical Exam ED Exam Exam: Appearance: Alert.? Oriented X3.? No acute distress.? +morbid obesity Head: Normocephalic, atraumatic, no step-offs or deformities Eyes: Pupils equal, round and reactive to light.? Neck: Normal inspection.? Neck supple.? CVS: Normal heart rate and rhythm.? Pulses normal.? Respiratory: No respiratory distress.? Breath sounds normal.? Abdomen: Soft and nontender.? Skin: Skin warm and dry.? Normal skin color.? Normal skin turgor.? Extremities: No lower extremity edema.? No calf ttp. 5/5 strength to bilateral upper and lower extremities Back: No midline tenderness, no C-spine tenderness, full range of motion, no CVA tenderness bilaterally Neuro: Oriented X 3.? No motor deficit.? No sensory deficit. CN 2-12 intact Vital Signs: Vital Signs - 24 hr 03/06/25 11:14 03/06/25 17:27 Temperature 98.6 F 98.2 F Pulse Rate 86 65 Respiratory Rate 20 16 Blood Pressure 161/91 H 123/64 Pulse Oximetry 98 98 Oxygen Delivery Method Room Air Room Air BMI result Body Mass Index 62.2 vss Course Course Course Narrative: Rapid medical examination performed in triage by Betty Richardson PA-C: Patient is a 24 year old assigned female at presenting to the emergency department with epigastric pain. Patient states she intermittently has epigastric pain - comes on after she eats and at night time. Detailed physical exam and review of systems are deferred to the licensed clinician. EKG and labs ordered. Patient placed back in the waiting room pending room availability and results. Reevaluation(s) Reevaluation #1: CBC unremarkable. Chemistry no acute findings needing intervention. Troponin negative, EKG nondiagnostic for chief complaint. HCG negative. UA and CT abdomen pelvis pending. Sign out to Miguel HARPER Time: 16:45 Reevaluation #2: Patient received in sign-out at change of shift pending CT scan. Your CT scan does not show any acute findings. Serum hCG is negative. Urinalysis was not obtained, however the patient denies any lower abdominal or pelvic pain, denies any burning with urination. She also reports that she is not sexually active. The patient will be discharged to follow up with outpatient providers. We will put a referral to GI for her epigastric pain. We will start her on omeprazole daily for 2 weeks Time: 18:30 Medications Administered Discontinued Medications Generic Name Dose Route Start Last Admin Trade Name Charlotte PRN Reason Stop Dose Admin Iohexol 100 ml 03/06/25 17:21 03/06/25 17:22 Iohexol 350 Mg/Ml 100 Ml Infus..Btl IV 03/06/25 17:22 98 ml ONCE ONE Administration Medical Decision Making Medical Decision Making [facility] Narrative: 28-year-old female with sharp abdominal pain x1 week and intermittent shortness of breath. No GI bleeding, nausea, or vomiting. History notable for asthma, fatty liver, childhood thyroid disorder. Diagnostics in progress; pain control offered but declined. Weight may limit imaging options. Problem #1: Acute abdominal pain, unspecified etiology Assessment: One week of sharp abdominal pain without associated GI symptoms of nausea/vomiting. Differential broad; imaging and labs pending. CT feasibility limited by patient weight. Plan: * Review available laboratory results. * Assess imaging options; attempt CT abdomen/pelvis if scanner capacity allows, or consider alternative imaging if weight exceeds limit. * Analgesia offered; patient declines at present?will reassess need. * Continue clinical monitoring; reassess after labs/imaging. Problem #2: Intermittent shortness of breath Assessment: SOB episodes temporally associated with abdominal pain, etiology unclear (pain-induced vs other). Plan * Monitor respiratory status during ED stay. * Evaluate for cardiopulmonary causes if symptoms persist or worsen. Differential Diagnosis Differential Diagnoses: The differential diagnosis associated with the presentation includes (- Biliary disease (cholelithiasis, cholecystitis) - Hepatic pathology (fatty liver, hepatitis) - Bowel pathology (constipation, obstruction) - Peptic ulcer disease - Pancreatitis - Gynecologic causes (e.g., ovarian pathology) - Cardiac causes (less likely given absence of chest pain and cardiac hist) Admission/Observation Consideration of admission/observation: Escalation of care including admission/observation considered Lab Data [facility] Lab Attestation statement: I reviewed the patient's lab results. 03/06/25 11:53 03/06/25 11:53 Labs: Lab Results 03/06/25 Range/Units 11:53 WBC 7.7 (4.8-10.8) X10*3/uL RBC 4.61 (4.20-5.50) X10*6/uL Hgb 13.4 (12.0-16.0) g/dl Hct 40.2 (37.0-47.0) % MCV 87.2 (80.0-98.0) fL MCH 29.1 (27.0-33.0) pg MCHC 33.3 (31.0-35.0) g/dl RDW 13.1 (11.0-16.0) % Plt Count 272 (160-400) X10*3/uL MPV 9.6 (9.4-12.3) fL Immature Gran % (Auto) 0.4 (0.0-0.4) % Neut % (Auto) 67.1 (45-73) % Lymph % (Auto) 25.2 (20-40) % Morrill % (Auto) 5.1 (2-11) % Eos % (Auto) 1.4 (0-4) % Baso % (Auto) 0.8 (0-2) % Lymph # (Auto) 1.9 (1.2-4.9) X10*3/uL Morrill # (Auto) 0.4 (0.1-1.2) X10*3/uL Eos # (Auto) 0.1 (0.0-0.4) X10*3/uL Baso # (Auto) 0.1 (0.0-0.2) X10*3/uL Abs Immat Gran (auto) 0.03 (0.00-0.03) X10*3/uL Absolute Neuts (auto) 5.2 (2.0-8.3) x10*3/uL Absolute Nucleated RBC 0.000 (0.0-0.012) X10*3/uL Nucleated RBC % (auto) 0.0 (0.0-0.2) /100WBC Sodium 144 (135-145) mmol/L Potassium 3.4 (3.3-5.1) mmol/L Chloride 110 H (96-108) mmol/L Carbon Dioxide 26 (22-29) mmol/L Anion Gap 11 L (12-20) BUN 14 (9-16) mg/dL Creatinine 0.70 (0.5-1.4) mg/dL Estim Creat Clear Calc 206.4 Estimated GFR > 60 Random Glucose 87 (60-115) mg/dL Calcium 9.2 (8.4-10.2) mg/dL Magnesium 1.9 (1.6-2.6) mg/dL Total Bilirubin 0.5 (0.0-1.0) mg/dL AST 27 (5-31) U/L ALT 28 (0-31) U/L Alkaline Phosphatase 77 (39-117) U/L Troponin I High Sens < 2.7 (<3.5-17.0) ng/L Total Protein 7.4 (6.5-8.0) g/dL Albumin 4.2 (3.5-5.0) g/dL Lipase 20 (8-78) U/L Beta HCG, Quant < 2 mIU/mL Independent Interpretation I performed an independent interpretation of an: CT Scan Discharge Plan Discharge Clinical Impression: Abdominal pain Patient Disposition: Home, Self-Care Instructions: Abdominal Pain (ED) Additional Instructions: Your workup in the ER today was reassuring. Your symptoms may be related to heartburn or gastritis Take omeprazole daily for the next 2 weeks Follow up with GI at the number provided Prescriptions: New omeprazole 20 mg tablet,delayed release (DR/EC) 20 mg PO DAILY Qty: 14 0RF Referrals: [facility] [place] [facility] [Provider Group, Gastroenterology] Referral Note: gastritis Print Language: Australian
--- NOTE | 2025-03-06 11:16 | ECG_ITS ---
Test Reason : abd Blood Pressure : */* mmHG Vent. Rate : 69 BPM Atrial Rate : 70 BPM P-R Int : 120 ms QRS Dur : 88 ms QT Int : 388 ms P-R-T Axes : -10 4 0 degrees QTcB Int : 415 ms Artifact in tracing Normal sinus rhythm Otherwise normal ECG When compared with ECG of 25-Dec-2024 16:24, No significant changes seen Referred By: Betty Richardson Electronically Signed By: MADELEINE CORCORAN
[2025-03-06 11:58] LABS: MANUAL DIFF FLAG NO
[2025-03-06 12:07] LABS: Hematocrit 40.2 % (37.0-47.0); Hemoglobin 13.4 g/dl (12.0-16.0); Imm Gran Abs Auto 0.03 X10*3/uL (0.00-0.03); Imm Gran Pct Auto 0.4 % (0.0-0.4); Lymphocytes Absolute Auto 1.9 X10*3/uL (1.2-4.9); Mean Corpuscular HGB Conc 33.3 g/dl (31.0-35.0); Mean Corpuscular Hemoglobin 29.1 pg (27.0-33.0); Mean Corpuscular Volume 87.2 fL (80.0-98.0); NRBC Abs Auto 0.000 X10*3/uL (0.0-0.012); NRBC Pct Auto 0.0 /100WBC (0.0-0.2); Platelet Count 272 X10*3/uL (160-400); Red Blood Count 4.61 X10*6/uL (4.20-5.50); White Blood Count 7.7 X10*3/uL (4.8-10.8)
[2025-03-06 12:18] LABS: Alanine Aminotransferase 28 U/L (0-31); Albumin Level 4.2 g/dL (3.5-5.0); Alkaline Phosphatase 77 U/L (39-117); Anion Gap 11 (12-20); Aspartate Amino Transferase 27 U/L (5-31); Blood Urea Nitrogen 14 mg/dL (9-16); Calcium 9.2 mg/dL (8.4-10.2); Carbon Dioxide 26 mmol/L (22-29); Chloride 110 mmol/L (96-108); Creatinine Clr Calc Pharmacy 206.4; Estimated Glomerular Filt Rate > 60; Lipase 20 U/L (8-78); Magnesium 1.9 mg/dL (1.6-2.6); Potassium 3.4 mmol/L (3.3-5.1); Sodium 144 mmol/L (135-145); Total Protein 7.4 g/dL (6.5-8.0)
[2025-03-06 12:29] LABS: Troponin-I High Sensitivity < 2.7 ng/L (<3.5-17.0)
--- OUTSIDE RECORDS SUMMARY | 2025-03-06 14:59 | XMS_ITS | Encounter Summary ---
Author Organization [facility] Address [address] [place] [address] Phone Care Team Providers Care Bag Bundler Name Role Phone Araceli Lowe MD Primary Care Provider Encounter Details Date Type Department Care Team (Late st Contact Info) Description 01/15/2014 Documentation [facility] [place] Family Medicine [address] [place] [address] Family Medicine, Physician [address] [place], [place] [id number] Social History Tobacco Use Types Packs/Day Years [...] on filedocumented in this encounter Care Teams Bag Bundler Relationship Specialty Start Date End Date Araceli Lowe MD [address] [place] [address] PCP - General Pediatrics 08/20/18 09/26/22 documented as of this encounter
--- OUTSIDE RECORDS SUMMARY | 2025-03-06 14:59 | XMS_ITS | Encounter Summary ---
Author Organization [facility] Address [address] [place] [address] Phone Care Team Providers Care Morning News Producer Name Role Phone Araceli Lowe MD Primary Care Provider [phone] Encounter Details Date Type Department Care Team (Late st Contact Info) Description 01/16/2014 Documentation [facility] Family Medicine [address] [place] [address] Family Medicine, Physician [address] [place], [place] [address] Social History Tobacco Use Types Packs/Day Years [...] on filedocumented in this encounter Care Teams Morning News Producer Relationship Specialty Start Date End Date Araceli Lowe MD [address] [place] [address] PCP - General Pediatrics 08/20/18 09/26/22 documented as of this encounter
--- OUTSIDE RECORDS SUMMARY | 2025-03-06 14:59 | XMS_ITS | Encounter Summary ---
Author Organization [facility] Address [address] [place] [address] Phone Care Team Providers Care Consumer Recruiter Name Role Phone Araceli Lowe MD Primary Care Provider [phone] Encounter Details Date Type Department Care Team (Late st Contact Info) Description 06/26/2013 Documentation [facility] [place] Family Medicine [address] [place] [address] Family Medicine, Physician [address] [place], [place] 011561 Social History Tobacco Use Types Packs/Day Years [...] on filedocumented in this encounter Care Teams Consumer Recruiter Relationship Specialty Start Date End Date Araceli Lowe MD [address] [place] [address] PCP - General Pediatrics 08/20/18 09/26/22 documented as of this encounter
--- OUTSIDE RECORDS SUMMARY | 2025-03-06 14:59 | XMS_ITS | Encounter Summary ---
Author Organization [facility] Address [address] [place] [address] Phone Care Team Providers Care Clay House Worker Name Role Phone Araceli Lowe MD Primary Care Provider [phone] Encounter Details Date Type Department Care Team (Late st Contact Info) Description 01/13/2014 Documentation [facility] Medicine [address] [place] [address] Family Medicine, Physician [address] [place], [place] 065791 Social History Tobacco Use Types Packs/Day Years [...] on filedocumented in this encounter Care Teams Clay House Worker Relationship Specialty Start Date End Date rAaceli Lowe MD [address] [place] [address] PCP - General Pediatrics 08/20/18 09/26/22 documented as of this encounter
--- OUTSIDE RECORDS SUMMARY | 2025-03-06 14:59 | XMS_ITS | Encounter Summary ---
Author Organization [facility] Address [address] [place] [address] Phone Care Team Providers Care Arborist Name Role Phone Araceli Lowe MD Primary Care Provider [phone] Encounter Details Date Type Department Care Team (Late st Contact Info) Description 01/09/2014 Documentation [facility] [place] Family Medicine [address] [place] [address] Family Medicine, Physician [address] [place], [place] 886081 Social History Tobacco Use Types Packs/Day Years [...] on filedocumented in this encounter Care Teams Arborist Relationship Specialty Start Date End Date Araceli Lowe MD [address] [place] [address] PCP - General Pediatrics 08/20/18 09/26/22 documented as of this encounter
--- OUTSIDE RECORDS SUMMARY | 2025-03-06 14:59 | XMS_ITS | Encounter Summary ---
Author Organization [facility] Address [address] [place] [address] Phone Care Team Providers Care Human Performance Professor Name Role Phone Araceli Lowe MD Primary Care Provider [phone] Encounter Details Date Type Department Care Team (Late st Contact Info) Description 01/16/2014 Documentation [facility] [place] Family Medicine [address] [place] [address] Family Medicine, Physician [address] [place], [place] 738951 Social History Tobacco Use Types Packs/Day Years [...] on filedocumented in this encounter Care Teams Human Performance Professor Relationship Specialty Start Date End Date Araceli Lowe MD [address] [place] [address] PCP - General Pediatrics 08/20/18 09/26/22 documented as of this encounter
--- OUTSIDE RECORDS SUMMARY | 2025-03-06 14:59 | XMS_ITS | Encounter Summary ---
Author Organization [facility] Address [address] [place] [address] Phone Care Team Providers Care Roofing Sales Representative Name Role Phone Araceli Lowe MD Primary Care Provider [phone] Encounter Details Date Type Department Care Team (Late st Contact Info) Description 01/16/2014 Documentation [facility] [place] [address] [place] [address] Family Medicine, Physician [address] [place], [place] 6476[address] Social History Tobacco Use Types Packs/Day Years [...] on filedocumented in this encounter Care Teams Roofing Sales Representative Relationship Specialty Start Date End Date Araceli Lowe MD [address] [place] [address] PCP - General Pediatrics 08/20/18 09/26/22 documented as of this encounter
--- OUTSIDE RECORDS SUMMARY | 2025-03-06 15:00 | XMS_ITS | Encounter Summary ---
Author Organization [facility] Address [address] [place] [address] Phone Care Team Providers Care Field Kiln Burner Name Role Phone Araceli Lowe MD Primary Care Provider [phone] Encounter Details Date Type Department Care Team (Late st Contact Info) Description 03/11/2014 Documentation [facility] [place] Family Medicine [address] [place] [address] Family Medicine, Physician [address] [place], [place] 935431 Social History Tobacco Use Types Packs/Day Years [...] on filedocumented in this encounter Care Teams Field Kiln Burner Relationship Specialty Start Date End Date Araceli Lowe MD [address] [place] [address] PCP - General Pediatrics 08/20/18 09/26/22 documented as of this encounter
--- OUTSIDE RECORDS SUMMARY | 2025-03-06 15:00 | XMS_ITS | Encounter Summary ---
Author Organization [facility] Address [address] [place] [address] Phone Care Team Providers Care Agricultural Education Teacher Name Role Phone Araceli Lowe MD Primary Care Provider [phone] Encounter Details Date Type Department Care Team (Late st Contact Info) Description 02/03/2015 Documentation [facility] [place] Family Medicine [address] [place] [address] Family Medicine, Physician [address] [place], [place] 8022[address] Social History Tobacco Use Types Packs/Day Years [...] on filedocumented in this encounter Care Teams Agricultural Education Teacher Relationship Specialty Start Date End Date Araceli Lowe MD [address] [place] [address] PCP - General Pediatrics 08/20/18 09/26/22 documented as of this encounter
--- OUTSIDE RECORDS SUMMARY | 2025-03-06 15:00 | XMS_ITS | Encounter Summary ---
Author Organization [facility] Address [address] [place] [address] Phone Care Team Providers Care Television Script Writer Name Role Phone Araceli Lowe MD Primary Care Provider [phone] Encounter Details Date Type Department Care Team (Late st Contact Info) Description 03/12/2014 Documentation [facility] [place] Family Medicine [address] [place] [address] Family Medicine, Physician [address] [place], [place] 4799[address] Social History Tobacco Use Types Packs/Day Years [...] on filedocumented in this encounter Care Teams Television Script Writer Relationship Specialty Start Date End Date Araceli Lowe MD [address] [place] [address] PCP - General Pediatrics 08/20/18 09/26/22 documented as of this encounter
--- OUTSIDE RECORDS SUMMARY | 2025-03-06 15:00 | XMS_ITS | Clinical Summary ---
Author Organization [facility] Address [address] [place] [address] Care Team Providers Care Services Delivery Driver Name Role Phone Unavailable Primary Care Provider Unavailabl e Encounters Date Type Department Care Team Description 01/27/2025 Population Health Risk Score [facility] (C3) Department [address] [facility] [address] [place] [address] Provider, Population Health Generic from Last 3 Months Social History Tobacco Use Types Packs/Day Years Used Date Smoking Tobacco: Never Assessed Comments Unknown Sex and Gender Information Value Date Recorded Sex Assigned at Not on file Legal Sex Female 2:13 AM EDT Gender Identity Not on file Sexual Orientation Not on file Plan of Treatment Health Maintenance Due Date Last Done Comments Depression Screening 2000 HIV Screening 2000 SDOH Screening 2000 Disability Screening 2000 Alcohol/Substance Use Screening 2012 Tobacco Screening 2012 Family Planning (PISQ) 12/12/2015 HPV Vaccines (1 - 3-dose series) 12/12/2015 Hepatitis C Screening 2018 DTaP/Tdap/Td Vaccines (1 - Tdap) 12/12/2019 Hepatitis A Vaccines (1 of 2 - Risk 2-dose series) 12/12/2019 Hepatitis B Vaccines (1 of 3 - 19+ 3-dose series) 12/12/2019 Pap Smear 2021 COVID-19 Vaccine (1 - 2024-2 6 season) 2024 Influenza Vaccine (#1) 2024 Zoster Vaccines (1 of 2) 2050 RSV Patients and Pa tients Aged 60 years or older (1 - 1-dose 75+ series) 12/12/2075 HIB Vaccines Aged Out No longer eligi ble based on patient's age to complete this topic IPV Vaccines Aged Out No longer eligi ble based on patient's age to complete this topic Meningococcal B Vaccine Aged Out No l onger eligible based on patient's age to complete this topic Meningococcal Vaccine Aged Out No david aden eligible based on patient's age to complete this topic Pneumococcal Vaccine: Pediat rics (0 to 5 Years) and At-Risk Patients (6 to 49) Years Aged Out No longer eligible b ased on patient's age to complete this topic RSV under 20 months Aged Out No longe r eligible based on patient's age to complete this topic Rotavirus Vaccines Aged Out No longer eligible based on patient's age to complete this topic
--- OUTSIDE RECORDS SUMMARY | 2025-03-06 15:00 | XMS_ITS | Clinical Summary ---
Author Organization [facility] Address [address] [place] [address] Phone Care Team Providers Care Supercharger Repair Supervisor Name Role Phone Unavailable Primary Care Provider [...] on metformin (followed by bessy franco at [facility]). Clint is discussing bariatric surgery with her. No show to [facility] weight mgmt clinic 04/23/19. Assessment & Plan (02/03/2019 1:26 PM EDT): She's gained 68lb since her PE 14 months ago. Prediabetes 11/21/2017 Overview (08/01/2021): On metformin. Followed by [facility] Bess[facility] Franco, last 11/09/17, was to f/u 04/2706/24/21- ophtho (Dr. [facility]) - no e/o diabetic retinopathy, does have myopia and astigmatism --> glasses, f/u annually. 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 Counselor at [facility] since ~2014: Tatianna Dumont ([facility]) - 2x/week. Assessment & Plan (04/30/2020 11:36 AM EST): No concerns about mood today, continue with therapist and med prescriber. ADHD (attention deficit hyperactivity disorder) 11/09/2016 Overview (04/30/2020): Takes Adderall XR 20mg qAM, Adderall 30mg qpm. Prescriber: Kaci Lopez ([facility]). 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 Followed by [facility], last 11/09/17, levothyroxine increased to [...] consider referral to new [facility] Resolved Problems Problem Noted Date Diagnosed [...] Other No family histo ry of *Sudden /[place] under 55, Family history of Cancer, breast, [...] Men B Vaccine Completed 10/03/2019, 02/03/2019 Insurance [facility] NON PCC
--- OUTSIDE RECORDS SUMMARY | 2025-03-06 15:00 | XMS_ITS | Encounter Summary ---
Author Organization [facility] Address [address] [place] [address] Phone Care Team Providers Care Structural Metal Worker Name Role Phone Araceli Lowe MD Primary Care Provider [phone] Encounter Details Date Type Department Care Team (Late st Contact Info) Description 09/30/2010 Documentation [facility] [place] Family Medicine [address] [place] [address] Family Medicine, Physician [address] [place], [place] [address] Social History Tobacco Use Types Packs/Day Years [...] on filedocumented in this encounter Care Teams Structural Metal Worker Relationship Specialty Start Date End Date Araceli Lowe MD [address] [place] [address] PCP - General Pediatrics 08/20/18 09/26/22 documented as of this encounter
--- OUTSIDE RECORDS SUMMARY | 2025-03-06 15:00 | XMS_ITS | Encounter Summary ---
Author Organization [facility] Address [address] [place] [address] Phone Care Team Providers Care Wastewater Treatment Operator Name Role Phone Araceli Lowe MD Primary Care Provider [phone] Encounter Details Date Type Department Care Team (Late st Contact Info) Description 03/20/2012 Documentation [facility] [place] Family Medicine [address] [place] [address] Family Medicine, Physician [address] [place], [place] [id number] Social History Tobacco Use Types Packs/Day Years [...] on filedocumented in this encounter Care Teams Wastewater Treatment Operator Relationship Specialty Start Date End Date Araceli Lowe MD [address] [place] [address] PCP - General Pediatrics 08/20/18 09/26/22 documented as of this encounter
--- OUTSIDE RECORDS SUMMARY | 2025-03-06 15:00 | XMS_ITS | Encounter Summary ---
Author Organization [facility] Address [address] [place] [address] Phone Care Team Providers Care Cattle Sticker Name Role Phone Araceli Lowe MD Primary Care Provider [phone] Encounter Details Date Type Department Care Team (Late st Contact Info) Description 03/16/2014 Documentation [facility] [place] Family Medicine [address] [place] [address] Family Medicine, Physician [address] [place], [place] 685[address] Social History Tobacco Use Types Packs/Day Years [...] on filedocumented in this encounter Care Teams Cattle Sticker Relationship Specialty Start Date End Date Araceli Lowe MD [address] [place] [address] PCP - General Pediatrics 08/20/18 09/26/22 documented as of this encounter
--- OUTSIDE RECORDS SUMMARY | 2025-03-06 15:00 | XMS_ITS | Encounter Summary ---
Author Organization [facility] Address [address] [place] [address] Phone Care Team Providers Care Market Research Executive Name Role Phone Araceli Lowe MD Primary Care Provider [phone] Encounter Details Date Type Department Care Team (Late st Contact Info) Description 10/16/2011 Documentation [facility] [place] [address] [place] [address] Family Medicine, Physician [address] [place], [place] 6450[address] Social History Tobacco Use Types Packs/Day Years [...] on filedocumented in this encounter Care Teams Market Research Executive Relationship Specialty Start Date End Date Araceli Lowe MD [address] [place] [address] PCP - General Pediatrics 08/20/18 09/26/22 documented as of this encounter
--- OUTSIDE RECORDS SUMMARY | 2025-03-06 15:00 | XMS_ITS | Encounter Summary ---
Author Organization [facility] Address [address] [place] [address] Phone Care Team Providers Care Yoga Coordinator Name Role Phone Araceli Lowe MD Primary Care Provider [phone] Encounter Details Date Type Department Care Team (Late st Contact Info) Description 03/18/2014 Documentation [facility] [place] Family Medicine [address] [place] [address] Family Medicine, Physician [address] [place], [place] 8204[address] Social History Tobacco Use Types Packs/Day Years [...] on filedocumented in this encounter Care Teams Yoga Coordinator Relationship Specialty Start Date End Date Araceli Lowe MD [address] [place] [address] PCP - General Pediatrics 08/20/18 09/26/22 documented as of this encounter
--- OUTSIDE RECORDS SUMMARY | 2025-03-06 15:00 | XMS_ITS | Encounter Summary ---
Author Organization [facility] Address [address] [place] [address] Phone Care Team Providers Care Heel Wheeler Name Role Phone Araceli Lowe MD Primary Care Provider [phone] Encounter Details Date Type Department Care Team (Late st Contact Info) Description 05/18/2010 Documentation [facility] [place] Family Medicine [address] [place] [address] Family Medicine, Physician [address] [place], [place] [address] Social History Tobacco Use Types Packs/Day Years [...] on filedocumented in this encounter Care Teams Heel Wheeler Relationship Specialty Start Date End Date Araceli Lowe MD [address] [place] [address] PCP - General Pediatrics 08/20/18 09/26/22 documented as of this encounter
--- OUTSIDE RECORDS SUMMARY | 2025-03-06 15:00 | XMS_ITS | Encounter Summary ---
Author Organization [facility] Address [address] [place] [address] Phone Care Team Providers Care Medical Officer Name Role Phone Araceli Lowe MD Primary Care Provider [phone] Encounter Details Date Type Department Care Team (Late st Contact Info) Description 01/20/2010 Documentation [facility] Family Medicine [address] [place] [address] Family Medicine, Physician [address] [place], [place] [address] Social History Tobacco Use Types Packs/Day Years [...] on filedocumented in this encounter Care Teams Medical Officer Relationship Specialty Start Date End Date Araceli Lowe MD [address] [place] [address] PCP - General Pediatrics 08/20/18 09/26/22 documented as of this encounter
--- OUTSIDE RECORDS SUMMARY | 2025-03-06 15:00 | XMS_ITS | Encounter Summary ---
Author Organization [facility] Address [address] [place] [address] Phone Care Team Providers Care Appliance Assembler Name Role Phone Araceli Lowe MD Primary Care Provider [phone] Encounter Details Date Type Department Care Team (Late st Contact Info) Description 11/23/2016 Conversion Encounter [facility] [place] [address] [place] [address] Social History Tobacco Use Types Packs/Day Years [...] on filedocumented in this encounter Care Teams Appliance Assembler Relationship Specialty Start Date End Date Araceli Lowe MD [address] [place] [address] PCP - General Pediatrics 08/20/18 09/26/22 documented as of this encounter
[2025-03-06] MEDS: iohexoL 350 MG/ML 100 ML INFUS..BTL IV (17:22)
[2025-03-06 17:27] VITALS: BP 123/64; PULSE 65; RESP 16; TEMP 36.8; O2SAT 98
[2025-03-06 18:52] VITALS: BP 123/64; PULSE 65; RESP 16; TEMP 36.8; O2SAT 98
== END 2025-03-06 18:53 | disposition home or self-care (01) ==
PROVIDERS: Physician Assistant; Physician Assistant Medical; Emergency Provider Emergency Medicine
DX: R10.13 Epigastric pain (principal); R06.02 Shortness of breath; E66.01 Morbid (severe) obesity due to excess calories; Z68.44 Body mass index [BMI] 60.0-69.9, adult
CPT/HCPCS: 36415; 74177; 80053; 83690; 83735; 84484; 84702; 85025; 93005; 99284; 99285; Q9967

== ENCOUNTER → 2025-03-06 11:16 | Outpatient (BNV) | payer MEDICAID, SELFPAY | PROVIDERS: Emergency Provider Emergency Medicine; Visit Provider Internal Medicine | DX: R10.13 Epigastric pain (principal) | CPT/HCPCS: 93010 ==

== ENCOUNTER → 2025-03-06 14:47 | Outpatient (BNV) | payer MEDICAID, SELFPAY | PROVIDERS: Emergency Provider Emergency Medicine; Visit Provider Radiology Diagnostic Radiology | DX: K44.9 Diaphragmatic hernia without obstruction or gangrene (principal); K76.0 Fatty (change of) liver, not elsewhere classified | CPT/HCPCS: 74177 ==